=== PATIENT | male | born 1950 | race Caucasian/White ===

== ENCOUNTER 2019-08-19 01:56 | Emergency (ER) | payer MEDICARE, OTHER, SELFPAY ==
[2019-08-19 02:02] VITALS: BP 164/88; PULSE 88; RESP 20; TEMP 37.2; O2SAT 99
--- NOTE | 2019-08-19 02:07 | ED_ITS ---
HPI - Ear Problem General Chief complaint: Ear Stated complaint: FB RIGHT EAR Time Seen by Provider: 08/19/19 02:02 History of Present Illness HPI Narrative: Lost a piece of his hearing aid in his right ear earlier this evening. He now has moderate pain in the ear. He took tylenol with moderate relief. No dizziness or drainage. Related Data Allergies Allergy/AdvReac Type Severity Reaction Status Date / Time No Known Allergies Allergy Verified 08/19/19 02:08 Review of Systems Review of Systems: All systems reviewed & are unremarkable except as noted in HPI and below Constitutional: Constitutional: Denies fever(s) Eyes: Eyes: Denies change in vision ENT: Denies vertigo and Denies sore throat [facility] Social History Social History (Updated 08/19/19 @ 03:43 by Herbie Daley MD) Smoking status: Never smoker Exam Const: General: no acute distress and alert Nutritional Appearance: obese Orientation/consciousness: patient oriented x3 HENMT: Other: Hearing aid visible in right external canal abutting TM Resp: Effort & Inspection: normal respiratory effort Skin: General skin exam: normal color Neuro: General: patient oriented x3 and moves all extremities Speech: normal speech Course Vital Signs Vital signs: Vital Signs Temperature 37.2 C 08/19/19 02:02 Pulse Rate 88 08/19/19 02:02 Respiratory Rate 08/19/19 02:02 Blood Pressure 164/88 H 08/19/19 02:02 Pulse Oximetry 99 08/19/19 02:02 Temperature 37.2 C 08/19/19 02:02 Pulse Rate 88 08/19/19 02:02 Respiratory Rate 08/19/19 02:02 Blood Pressure 164/88 H 08/19/19 02:02 Pulse Oximetry 99 08/19/19 02:02 Procedures Foreign Body Removal Foreign Body #1: Site: right and ear Description of foreign body: other (hearing aid piece) Technique: removal with forceps and other (ear speculum) Confirmed by:: direct visualization Complications: none Medical Decision Making Vital Signs Vital Signs: Vital Signs Temperature 37.2 C 08/19/19 02:02 Pulse Rate 88 08/19/19 02:02 Respiratory Rate 08/19/19 02:02 Blood Pressure 164/88 H 08/19/19 02:02 Pulse Oximetry 99 08/19/19 02:02 Temperature 37.2 C 08/19/19 02:02 Pulse Rate 88 08/19/19 02:02 Respiratory Rate 20 08/19/19 02:02 Blood Pressure 164/88 H 08/19/19 02:02 Pulse Oximetry 99 08/19/19 02:02 Discharge Plan Discharge Clinical Impression: Ear foreign body Qualifiers: Encounter type: initial encounter Laterality: right Qualified Code(s): T16.1XXA - Foreign body in right ear, initial encounter Patient Disposition: Home, Self-Care Condition: Stable Instructions: Ear Foreign Body (ED) Follow-up/Referrals: Sinan,Mark Massey MD [Primary Care Provider] - Discharge Date/Time: 08/19/19 04:59
[2019-08-19] MEDS: HYDROGEN PEROXIDE 3% SOLN(*SP) 473 ML BOTTLE (02:30)
--- NOTE | 2019-08-19 03:02 | PC.NURSE ---
EDP in room at this time, attempting to remove FB from patient's right ear.
== END 2019-08-19 04:59 | disposition home or self-care (01) ==
PROVIDERS: Emergency Provider Emergency Medicine; PCP Internal Medicine
DX: T16.1XXA Foreign body in right ear, initial encounter (principal)
CPT/HCPCS: 69200; 99283; A9270

== ENCOUNTER 2021-02-18 02:25 | Day surgery (SDC) | payer MEDICARE, OTHER, SELFPAY ==
[2021-02-10 14:18] VITALS: BMI 36.8
--- NOTE | 2021-02-17 13:07 | PM.HPGS ---
History of Present Illness History of Present Illness Consent: Risks, benefits, and alternatives have been discussed and questions answered. Patient agrees to proceed with procedure. Chief complaint: neoplasm screening Narrative: Steve Ramirez Jr. is a 70 year old male was referred for colon cancer screening Review of Systems Review of Systems: All systems reviewed & are unremarkable except as noted in HPI and below PMFSH Past Medical History Medical History GERD (gastroesophageal reflux disease) Obesity Snoring Surgical History Surgical History History of carpal tunnel surgery Social History Social History Smoking status: Never smoker Alcohol use details: rare drinker while dining out, <1 per week Substance use: never Substance use type: does not use Living arrangements: with family Spiritual care concerns: No Meds Home Medications and Allergies Home Medications Medication Instructions Recorded Confirmed Type aspirin [Adult Low Dose Aspirin] 81 mg PO DAILY 02/10/21 02/18/21 History diclofenac sodium 75 mg PO DAILY 02/10/21 02/18/21 History lansoprazole 15 mg PO DAILY 02/10/21 02/18/21 History Allergies Allergy/AdvReac Type Severity Reaction Status Date / Time atorvastatin [From Lipitor] AdvReac Unknown Dizziness Verified 02/18/21 11:33 Exam Const: General: alert Orientation/consciousness: patient oriented x3 Resp: Auscultation: clear to auscultation bilaterally Cardio: Rhythm: regular rhythm GI: GI Palp: Yes Soft to palpation and No Tenderness to palpation present (GI) Neuro: General: patient oriented x3 Assessment and Plan Assessment and plan (1) Colon cancer screening: Code(s): Z12.11 - Encounter for screening for malignant neoplasm of colon Status: Acute Assessment and Plan: Colonoscopy with possible biopsy or polypectomy or cautery or injection of substances.
[2021-02-18 11:34] VITALS: BP 153/83; PULSE 87; RESP 18; TEMP 36.2; O2SAT 97
[2021-02-18] MEDS: LACTATED RINGERS 1,000 ML 150 ML IV CONT (11:38)
--- NOTE | 2021-02-18 12:21 | WPDANESEPPF ---
Anes - Initial Pre Proc Eval Procedure: Operation Date: 02/18/21 14:00 Proposed Procedures p Screening Colonoscopy - Mina Zee MD Date/Time: 02/18/21 12:21 Surgeon: Mina Zee MD Pre Op Diagnosis: neoplasm screening Patient Data Age: 70 Gender: M Height: 1.8 m Weight: 117.4 kg Last Vital Signs Temp 36.2 C L 02/18/21 11:34 Pulse 87 02/18/21 11:34 Resp 18 02/18/21 11:34 BP 153/83 H 02/18/21 11:34 Pulse Ox 97 02/18/21 11:34 Allergies Allergy/AdvReac Type Severity Reaction Status Date / Time atorvastatin [From Lipitor] AdvReac Unknown Dizziness Verified 02/18/21 11:33 Home Medications Medication Instructions Recorded Confirmed Type aspirin [Adult Low Dose Aspirin] 81 mg PO DAILY 02/10/21 02/18/21 History diclofenac sodium 75 mg PO DAILY 02/10/21 02/18/21 History lansoprazole 15 mg PO DAILY 02/10/21 02/18/21 History Patient hx anesthesia problems: none Family hx anesthesia problems: none Results Review: All pre-operative results and documents have been reviewed as part of the pre-operative evaluation. [facility] Past Medical History Medical History (Updated 02/18/21 @ 12:26 by Pascual Miranda MD) GERD (gastroesophageal reflux disease) Obesity Snoring Surgical History Surgical History (Updated 02/18/21 @ 12:25 by Pascual Miranda MD) History of carpal tunnel surgery Social History Social History Smoking status: Never smoker Alcohol use details: rare drinker while dining out, <1 per week Substance use: never Substance use type: does not use Living arrangements: with family Spiritual care concerns: No Anes - Eval Final PreProcedure Day of Procedure 02/18/21 12:21 Patient weight: obese Heart: regular rate and rhythm Lungs: clear to auscultation Airway: Mallampati scale class III and special considerations large tongue Neurological: alert and oriented Last oral intake: >/= 8 hours ASA classification: III Emergent: no Anesthetic plan: proceed Anesthesia type and monitoring: general GIVS and standard monitoring Results Review: All pre-operative results and documents have been reviewed as part of the pre-operative evaluation. Informed Consent: The patient's anesthetic plan and its attendant risks and benefits were discussed with the patient/family/POA. Questions were solicited and answers provided to the satisfaction of the patient/family/POA.
[2021-02-18 13:10] VITALS: BP 106/68; PULSE 70; RESP 16; O2SAT 96
[2021-02-18 13:20] VITALS: BP 109/73; PULSE 78; RESP 20; O2SAT 98
[2021-02-18 13:30] VITALS: BP 131/95; PULSE 80; RESP 20; O2SAT 99
== END 2021-02-18 13:42 | disposition home or self-care (01) ==
PROVIDERS: PCP Internal Medicine; Visit Provider Internal Medicine Gastroenterology
PROC: 0DJD8ZZ Inspection of Lower Intestinal Tract, Via Natural or Artificial Opening Endoscopic (ICD-10-PCS; CPT 45378; principal; 2021-02-18 14:00)
DX: Z12.11 Encounter for screening for malignant neoplasm of colon (principal); K57.30 Diverticulosis of large intestine without perforation or abscess without bleeding; K21.9 Gastro-esophageal reflux disease without esophagitis; E66.9 Obesity, unspecified; Z68.36 Body mass index [BMI] 36.0-36.9, adult
CPT/HCPCS: G0121; J2704; J7120

== ENCOUNTER 2022-02-15 09:34 | Outpatient (CLI) | payer MEDICARE, OTHER, SELFPAY ==
--- NOTE | 2022-02-15 11:00 | NEURO_ITS ---
Impression: # Complains of numbness of feet. 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 # Needle/EMG exam revealed decreased motor units potentials distal more than proximal without acute denervation potentials. # Clinical correlation recommended. Motor Nerve Conduction Lower Extremities Peroneal Nerve Conduction Velocity (m/sec) Terminal Latency (msec) Response Voltage(mV) Popliteal space-Ankle Ankle Extensor Dig Brevis Popliteal space Ankle Right 30 4.5 .2 1 Left 40 4.6 1 1 Tibial Nerve Conduction Velocity (m/sec) Terminal Latency (msec) Response Voltage(mV) Popliteal space-Ankle Ankle-Extensor Dig Brevis Popliteal space Ankle Right 39 5.0 1 3 Left 41 5.1 2 3 F-waves Peroneal Nerve (ms) Tibial Nerve (ms) Right Dispersed Response 61.7 Left 57.3 28.8 Sensory Nerve Conduction Lower Extremities Sural Nerve Stimulation Terminal Latency (msec) Ankle Response Voltage (uV) Ankle Response Velocity (m/sec) Right NR NR NR Left 3.9 14 41 Superficial Peroneal Nerve Stimulation Terminal Latency (msec) Ankle Response Voltage (uV) Ankle Response Velocity (m/sec) Right 4.2 22 38 Left 3.8 14 42 Left Right Muscles Examined Fibrillation Fasciculation Scarcity Voltage Duration Left Right Left Right Left Right Left Right Left Right X X Ant Tibialis Reduced Reduced X X Gastroc Reduced Reduced X X Fibularis Long Reduced Reduced X X Flex Dig Long Reduced Reduced X X Ext Dig Brev Reduced Reduced Abd Hallucis Quadriceps Paraspinals MTDD
== END 2022-02-15 09:35 | disposition home or self-care (01) ==
PROVIDERS: PCP Internal Medicine; Visit Provider Internal Medicine
DX: R20.2 Paresthesia of skin (principal)
CPT/HCPCS: 95886; 95910

== ENCOUNTER 2022-03-15 13:42 | Outpatient (CLI) | payer MEDICARE, OTHER, SELFPAY ==
--- NOTE | 2022-03-15 14:52 | ECG_ITS ---
Measurements Intervals Monument Rate: 74 P: 42 CT: 158 QRS: 5 QRSD: 91 T: 18 QT: 367 QTc: 409 Interpretive Statements SINUS RHYTHM BASELINE WANDER- V1 NORMAL ECG NO PREVIOUS ECG AVAILABLE FOR COMPARISON Electronically Signed On 03-15-2022 15:15:39 [employer] RN by Bennie Zuluaga D.O.
[2022-03-15 16:10] LABS: Basophils Absolute Auto 0.1 K/mm3 (0.0-0.1); Basophils Percent Auto 0.8 % (0.2-1.2); Eosinophils Absolute Auto 0.3 K/mm3 (0-0.3); Eosinophils Percent Auto 4.6 % (0-4.4); Hematocrit 46.7 % (42.0-52.0); Hemoglobin 14.9 g/dL (14.0-18.0); Immature Granulocyte Absolute 0.03 K/mm3 (0.00-0.031); Immature Granulocyte Percent A 0.5 % (0-0.5); Lymphocytes Absolute Auto 1.81 K/mm3 (0.9-3.2); Lymphocytes Percent Auto 27.7 % (18.3-44.2); Mean Corpuscular HGB Conc 31.9 g/dl (32-36); Mean Corpuscular Hemoglobin 27.4 pg (26-34); Mean Corpuscular Volume 85.8 fl (80-100); Mean Platelet Volume 9.1 fl (7.4-10.4); Monocytes Absolute Auto 0.5 K/mm3 (0.1-0.6); Monocytes Percent Auto 8.3 % (2.6-8.5); Neutrophils Absolute Auto 3.8 K/mm3 (1.3-6.7); Neutrophils Percent Auto 58.1 % (45.5-73.1); Platelet Count Result 241 k/mm3 (150-375); Red Blood Count 5.44 M/mm3 (4.6-6.20); Red Cell Distribution Width 13.8 % (11.5-14.5); White Blood Count 6.5 K/mm3 (4.5-10.0)
[2022-03-15 16:50] LABS: Urine Cotinine NEGATIVE
[2022-03-15 20:36] LABS: Hemoglobin A1C 5.9 % (<5.7)
== END 2022-03-15 13:43 | disposition home or self-care (01) ==
PROVIDERS: PCP Internal Medicine; Visit Provider Orthopaedic Surgery
DX: M17.12 Unilateral primary osteoarthritis, left knee (principal); Z01.818 Encounter for other preprocedural examination
CPT/HCPCS: 80307; 83036; 85025; 87081; 87147; 87181; 87186; 93005

== ENCOUNTER 2022-03-16 13:37 | Outpatient (CLI) | payer MEDICARE, OTHER, SELFPAY ==
[2022-03-16 16:08] LABS: Albumin Level 4.4 g/dL (3.5-5.1); Anion Gap 6 mmol/L (8-16); Blood Urea Nitrogen 14 mg/dL (9-20); Calcium 9.2 mg/dL (8.4-10.2); Carbon Dioxide 28 mmol/L (22-30); Chloride 99 mmol/L (98-107); Estimated Glomerular Filt Rate > 60; Glucose 100 mg/dL (65-110); Potassium 3.9 mmol/L (3.4-5.0); Sodium 133 mmol/L (137-145)
== END 2022-03-16 13:38 | disposition home or self-care (01) ==
PROVIDERS: PCP Internal Medicine; Visit Provider Orthopaedic Surgery
DX: M17.12 Unilateral primary osteoarthritis, left knee (principal); Z01.818 Encounter for other preprocedural examination
CPT/HCPCS: 36415; 80048; 82040

== ENCOUNTER 2022-03-31 00:38 | Day surgery (SDC) | payer MEDICARE, OTHER, SELFPAY ==
[2022-03-15 13:56] VITALS: BMI 39.1
[2022-03-15 14:06] VITALS: BP 161/84; PULSE 75; RESP 16; TEMP 36.9; O2SAT 96
--- NOTE | 2022-03-15 14:13 | PC.NURSE ---
Report to the Outpatient Waiting Room, entrance under the green pavilion located off [facility], at time __10:00AM on date __03/31/22 . Planned Procedure Time: __12:00PM . Time changes happen often and if your time is changed the preop area will call you the afternoon before. - You and your visitor will be asked to self-screen and do not enter if you have any COVID symptoms. - Only one visitor is requested with a max of two and NO children visitors are allowed at this time. - The patient visitor may be requested to leave or wait in car when not with patient due to distancing restrictions. - A mask is optional within the hospital. Patients may have clear liquids (water, carbonated beverages, clear teas, apple juice) until 3 hours prior to surgery with a maximum of 20 ounces. - No food from midnight until time of surgery Take the following medications with a SIP of water the morning of surgery: ___GABAPENTIN NEEDED Medications to discontinue per physician ____HOLD ALL VITAMINS/SUPPLEMENTS, ASPIRIN AND DICLOFENAC/NSAIDS 7 DAYS PRE-OP PER DR MACK (PER PATIENT) Date to take last dose__03/24/22 Please no make-up, nail estonian, hairspray, perfume, deodorant, or body powder the day of surgery. No jewelry (including any body piercings) or valuables the day of surgery, leave them at home. Please take a shower or bath the night before, or the morning of, surgery with an antibacterial soap. Wear comfortable, loose fitting clothing. Children are encouraged to wear pajamas. - Jewelry must be removed prior to entering the operating room. Rings and piercings that are not removed may be cut off. - The hospital will not accept responsibility for valuables. - Please leave all valuables, including medications, at home the day of surgery. If you are going home after surgery, a licensed nascar driver must drive you home. - NO public transportation without another adult if you receive anesthesia. - We recommend that an adult stay with you for 24 hours following discharge. - We also recommend that you do not drive, make important decision, drink alcoholic beverages, or take any drugs that were not prescribed by your health care provider for at least 24 hours after your discharge time. Follow any additional instructions given to you from your surgeon. If you or anyone in your household have experienced Covid symptoms in the past week, please notify your surgeon or the nurse liaison at the phone number below for possible testing. Telephone instructions given to __PATIENT__and asked if any additional questions and then verbalized understanding. Patient advised to call surgeon office or pre surgery nurse liaison [phone] if any additional questions.
--- NOTE | 2022-03-29 13:33 | PM.IMHP ---
H&P: HPI History of Present Illness Date/Time: 03/29/22 13:33 Chief Complaint: Left knee DJD Narrative: 71-year-old male patient of Dr. Menon who presents today for left total knee arthroplasty. patient has been having pain for about 3 or 4 years. He has been on diclofenac 75 mg b.i.d. for that amount of time. Patient had arthroscopy done to this knee approximately 25 years ago. The medial compartment osteoarthritis in his knee has progressed to the point now where it is [id number]. Patient is having pain on a regular basis without improvement of his symptoms with non surgical treatment. He feels at this point he is ready to proceed with total knee arthroplasty rather continue in a nonsurgical treatment. Review of Systems Review of Systems: All systems reviewed & are unremarkable except as noted in HPI and below PMFSH Past Medical History Medical History GERD (gastroesophageal reflux disease) Obesity Snoring Surgical History Surgical History History of carpal tunnel surgery Social History Social History Smoking status: Never smoker Alcohol intake: current Drinks per week: 1 Alcohol use details: rare drinker while dining out, <1 per week Substance use: never Substance use type: does not use Living arrangements: with family Additional living arrangements comments: Spiritual care concerns: No Meds Home Medications and Allergies Home Medications Medication Instructions Recorded Confirmed Type aspirin 81 mg tablet 81 mg PO DAILY 02/10/21 03/15/22 History diclofenac sodium 75 mg 75 mg PO QAM 02/10/21 03/15/22 History tablet,delayed release lansoprazole 15 mg capsule,delayed 15 mg PO DAILY PRN Indigestion 02/10/21 03/15/22 History release acetaminophen 650 mg 1,300 mg PO Q12H PRN Pain 03/15/22 03/15/22 History tablet,extended release (Tylenol Arthritis Pain) ascorbic acid (vitamin C) 1,000 mg 1 g PO DAILY 03/15/22 03/15/22 History capsule ezetimibe 10 mg tablet 10 mg PO DAILY 03/15/22 03/15/22 History gabapentin 100 mg capsule 100 mg PO TID 03/15/22 03/15/22 History geriatric multivitamin-min 1 tablet PO DAILY 03/15/22 03/15/22 History tumeric 100 mg-alice 150 mg-olive 1 - 2 cap PO DAILY PRN Pain 03/15/22 03/15/22 History 50 mg-oreg 150 mg-caprylate capsule vitamin B complex (B 1 tablet PO DAILY 03/15/22 03/15/22 History Complex-Vitamin B12 tablet) Allergies Allergy/AdvReac Type Severity Reaction Status Date / Time atorvastatin [From Lipitor] AdvReac Unknown Dizziness Verified 03/15/22 13:58 Exam Narrative: 71-year-old male alert pleasant. He is 5 ft 9 and 268 lb, his BMI is 39.6. Left knee range of motion is from 5-120 degrees, there is a mild effusion. Mild medial joint line tenderness. Normal stability. Hip range of motion is full without discomfort. Negative Stinchfield maneuver. Normal quad strength. Patient has moderate pain with patellofemoral grind. He reports marketed numbness and tingling in the tops and bottoms of both feet. 2+ dorsalis pedis and posterior artery pulse. Trace pretibial edema bilaterally. Resp: Auscultation: clear to auscultation bilaterally Cardio: Rate: regular rate Rhythm: regular rhythm Assessment and Plan Assessment and plan (1) Left knee DJD: Code(s): M17.12 - Unilateral primary osteoarthritis, left knee Status: Acute Plan 71-year-old male who has severe medial compartment osteoarthritis. Again options were discussed. Patient at this point feels he would rather proceed with total knee arthroplasty rather continue nonsurgical treatment. Surgical procedure as well as the risks and complications were discussed in detail all questions were answered and will proceed. Patient is going to stop his baby aspirin mid February. He has no
[2022-03-31] VITALS (10 sets, daily range): BP systolic 125–164; BP diastolic 67–89; PULSE 71–93; RESP 8–18; TEMP 36.3–37.1; O2SAT 93–100
--- NOTE | ~2022-03-31 | XR_ITS ---
EXAM: XR knee LT 2V DATE: 03/31/2022 16:31 HISTORY: LT TOTAL KNEE . COMPARISON: 06/11/2015. FINDINGS: Interval left total knee arthroplasty, in good position. Fluid and air within the subcutan eous tissues and the joint capsule. No unexpected radiopaque foreign body. IMPRESSION: Expected postsurgical changes, with no radiographic evidence of procedure or hardware rel ated complication. Reviewed, dictated and finalized at location K. BRIDGE TENDER IMPRESSION: Expected postsurgical changes, with no radiographic evidence of pro cedure or hardware related complication.
[2022-03-31] MEDS: LACTATED RINGERS 1,000 ML 30 ML IV CONT ×3 (10:20→16:55)
[2022-03-31] MEDS: ACETAMINOPHEN 500 MG TABLET 1000 MG PO ×2 (10:22→18:36)
--- NOTE | 2022-03-31 11:27 | WPDANESEPPF ---
Anes - Initial Pre Proc Eval Procedure: Operation Date: 03/31/22 12:00 Proposed Procedures p Left Total Knee Arthroplasty - Alirio Sharp MD Date/Time: 03/31/22 11:27 Surgeon: Alirio Sharp MD Pre Op Diagnosis: O A Lt Knee Patient Data Age: 71 Gender: M Height: 1.77 m Weight: 118.6 kg Last Vital Signs Temp 98.3 F 03/31/22 09:43 Pulse 84 03/31/22 09:43 Resp 16 03/31/22 09:43 BP 164/89 H 03/31/22 09:43 Pulse Ox 98 03/31/22 09:43 O2 Del Method Room Air 03/31/22 09:43 Allergies Allergy/AdvReac Type Severity Reaction Status Date / Time atorvastatin [From Lipitor] AdvReac Mild Dizziness Verified 03/31/22 09:58 Home Medications Medication Instructions Recorded Confirmed Type aspirin 81 mg tablet 81 mg PO DAILY 02/10/21 03/31/22 History diclofenac sodium 75 mg 75 mg PO QAM 02/10/21 03/31/22 History tablet,delayed release lansoprazole 15 mg capsule,delayed 15 mg PO DAILY PRN Indigestion 02/10/21 03/31/22 History release acetaminophen 650 mg 1,300 mg PO Q12H PRN Pain 03/15/22 03/31/22 History tablet,extended release (Tylenol Arthritis Pain) ascorbic acid (vitamin C) 1,000 mg 1 g PO DAILY 03/15/22 03/31/22 History capsule ezetimibe 10 mg tablet 10 mg PO DAILY 03/15/22 03/31/22 History gabapentin 100 mg capsule 100 mg PO TID 03/15/22 03/31/22 History geriatric multivitamin-min 1 tablet PO DAILY 03/15/22 03/31/22 History tumeric 100 mg-alice 150 mg-olive 1 - 2 cap PO DAILY PRN Pain 03/15/22 03/31/22 History 50 mg-oreg 150 mg-caprylate capsule vitamin B complex (B 1 tablet PO DAILY 03/15/22 03/31/22 History Complex-Vitamin B12 tablet) Patient hx anesthesia problems: none Family hx anesthesia problems: none Results Review: All pre-operative results and documents have been reviewed as part of the pre-operative evaluation. PMFSH Past Medical History Medical History GERD (gastroesophageal reflux disease) Obesity Snoring Surgical History Surgical History History of carpal tunnel surgery Social History Social History Smoking status: Never smoker Alcohol intake: current Drinks per week: 1 Alcohol use details: rare drinker while dining out, <1 per week Substance use: never Substance use type: does not use Living arrangements: with family Additional living arrangements comments: Spiritual care concerns: No Anes - Eval Final PreProcedure Day of Procedure 03/31/22 11:27 Patient weight: normal and obese Heart: regular rate and rhythm Lungs: clear to auscultation Airway: Mallampati scale class III Neurological: alert and oriented Last oral intake: >/= 8 hours ASA classification: III Emergent: no Anesthetic plan: proceed Anesthesia type and monitoring: general ETT and standard monitoring Results Review: All pre-operative results and documents have been reviewed as part of the pre-operative evaluation. Informed Consent: The patient's anesthetic plan and its attendant risks and benefits were discussed with the patient/family/POA. Questions were solicited and answers provided to the satisfaction of the patient/family/POA.
[2022-03-31] MEDS: TRANEXAMIC ACID 1,000MG/ISO100 1,000 MG/100 ML BAG 200 MG IVPB (11:31)
--- NOTE | 2022-03-31 12:09 | WPDHPUPDATE1 ---
History and Physical Update Update Date/Time: 03/31/22 12:09 History and Physical has been reviewed, including an updated exam of the patient. There are NO changes in the patient's condition. Risks, benefits, and alternatives have been discussed and questions answered. Patient agrees to proceed with procedure.
[2022-03-31] MEDS: ceFAZolin 3 GM/D5W 100 ML 100 ML IVPB (12:15)
[2022-03-31] MEDS: ceFAZolin SODIUM 1 GM VIAL 3 GM IRRIGATION (13:12)
[2022-03-31] MEDS: GENTAMICIN BONE CEMENT REFOBACIN 1 EACH TOPICAL (13:13)
[2022-03-31] MEDS: TRANEXAMIC ACID 1,000 MG/10 ML AMPUL 1000 MG IV PUSH (14:41)
[2022-03-31] MEDS: ceFAZolin SODIUM 1 GM VIAL 2 GM IV PUSH (14:43)
--- NOTE | 2022-03-31 16:17 | W.PM.PROC2 ---
Procedure Note - Detailed Date of Procedure 03/31/22 Pre-op Diagnosis O A Lt Knee Post-op Diagnosis Same Procedure Performed Left total knee arthroplasty Surgeon Alirio Sharp MD Anesthesia General Description of Procedure Patient was brought to the operating room and general anesthesia was administered. He received 3 g Ancef weight based vancomycin 1 g of tranexamic acid as preoperatively and the left knee was prepped draped usual fashion. Under anesthesia his knee was very stiff he had flexion only to about 105? and these to 10 degree flexion contracture. There was extra difficulty with the procedure due to his obesity with BMI of 39 adding approximately 30 minutes the procedure. The limb was exsanguinated tourniquet elevated to 300 mmHg. A 8 in longitudinal midline incision was used and a standard parapatellar arthrotomy lysed. Infrapatellar and suprapatellar fat pads were excised a quadriceps synovectomy carried out. He had extensive scarring in the synovium it in part limited his flexion and a synovectomy of the suprapatellar pouch was carried out. Large osteophytes around the femur were removed. The patella showed only mild arthritic change with intact cartilage except for moderate thinning of cartilage in medial facet and I thought it was most appropriate for non resurfacing. A limited lateral facetectomy was performed. A guide александр was inserted down the femoral canal after aspiration of canal contents using the 5 degree valgus cutting bushing 9 mm of bone removed the distal femur. This removed equal amounts medially and laterally because of wear medially. Next the tibial plateau was cut. We removed about 2 mm in the low point of the medial tibial plateau. This removed approximately 12.5 mm from lateral side. Far posteromedially this gave us a skim cut. Cut was made perpendicular to the axis of the tibia. PCL was recessed and meniscal remnants excised. The anteromedial tibial osteophyte was removed. The extension gap looked fairly sq at this point. Flexion he had 8 mm of medial joint space and 12 mm of lateral joint space at 90?. The femoral sizing guide was applied the distal femur set at 5? of external rotation which matched Whitesides line. Posterior referencing pinholes were placed. The size 67.5 cutting block was applied AP and chamfer cuts were made and the trial fit line to line medial to lateral and anterior to posterior. Trialing the 10 CR insert had good medial to lateral balance both in flexion and extension. Full extension was already present. We had done a conservative posterior capsule release to this point. The the tibia was sized to a 75 vanguard and at proper rotation this fit line to line anteromedial to posterolateral rotation referenced off the medial 1/3 tibial tubercle anterior cortex of the tibia and 2nd metatarsal ray. This was punched and we trialed the 10 insert. Ten opened up to mm medially this point at 90? 1 mm lateral and extension 1-2 mm medially and 3-4 mm lateral. We trialed the 11 and the seemed a little bit tight in both flexion and extension lacking just a couple degrees of extension with barely positive bounce but seems a bit snug at 90? to anterior drawer. Step drill was used to make perforations in tibial plateau and distal femur. The bony surfaces were thoroughly irrigated and dried. Using 2 batches of methylmethacrylate 1 with gentamicin powder, cement was immediately applied the 75 tibia and the 67.5 left CR femoral component vanguard. Cement was applied the tibia pressurized and the 75 tibia fully seated cement applied to the femur the femoral component fully seated the knee brought into full extension with 11 mm 5 and 1 insert for pressurization the tourniquet released at 102 minutes. After cement hardening excess cement was sought for removed and hemostasis was achieved. EBL for the procedure estimated 250 cc. Additional 2 g of Ancef and 1 g of tranexamic acid were given at time
[2022-03-31] MEDS: fentaNYL CITRATE INJ (*CRX) 100 MCG/2 ML VIAL 25 MCG IV PUSH ×6 (16:20→16:45)
--- NOTE | 2022-03-31 17:41 | ADMGEN ---
This patient, Steve Ramirez Jr., was admitted to Medical Room 243-01. Patient/family oriented to hospital policies and general routines including ID bracelet, bed and alarms, visiting hours, pain management, procedures, bathroom and other care routines, personal items, smoking policy, room service/diet, and visiting hours. Information on how to activate the Rapid Response Team has been discussed. Patient/Family are encouraged to report perceived risks to care and to ask questions if they do not understand what they are told or what they should do.
[2022-03-31] MEDS: GABAPENTIN 100 MG CAPSULE PO (18:35)
[2022-03-31] MEDS: KETOROLAC 15 MG/ML VIAL (*BKC) IV PUSH ×2 (18:35→23:10)
[2022-03-31] MEDS: SENNA/DOCUSATE SODIUM TABLET 2 TAB PO (18:36)
[2022-03-31] MEDS: ceFAZolin 2 GM/D5W 50 ML 2 GM/50 ML BAG IVPB (21:50)
[2022-03-31] MEDS: oxyCODONE HCL (*CRX) 5 MG TAB IR PO ×2 (21:53→23:16)
--- NOTE | 2022-03-31 22:49 | PM.IMCN ---
Assessment and Plan Assessment and plan (1) History of total knee arthroplasty: Code(s): Z96.659 - Presence of unspecified artificial knee joint Status: Acute Assessment and Plan: -postop care per Orthopedic. -pain management per Orthopedic -PT OT per Orthopedic. The patient is currently sitting up in the chair. -DVT prophylaxis per Orthopedic. The patient appears to be on Eliquis. (2) GERD (gastroesophageal reflux disease): Code(s): K21.9 - Gastro-esophageal reflux disease without esophagitis Status: Acute Assessment and Plan: -the patient has been continue on Protonix (3) Hyperlipidemia: Code(s): E78.5 - Hyperlipidemia, unspecified Status: Acute Assessment and Plan: -continue with Zetia (4) Neuropathy: Code(s): G62.9 - Polyneuropathy, unspecified Status: Acute Assessment and Plan: -continue gabapentin Plan Thank you Dr. Sharp for this consultation. Will continue to comanage alongside you. HPI Data of Consult Consult date: 03/31/22 Requesting Physician: Alirio Sharp MD Primary Care Provider: Mark Menon, Consult Narrative Reason for consult: Medical management Narrative: Steve Ramirez Jr. is a 71 year old male who has been having pain to his left knee for at least 3-4 years. The patient has been on diclofenac for at least several years. He has been taking it at least twice a day. The patient has been taking care of his who is dealing with metastatic breast cancer. The patient stated that he was just now able to get his left total knee arthroplasty as he feels that his is somewhat settled and he feels that he wants to get his left knee surgery before she gets worse. He feels that he will need to be able to take care of his and lift her later on down the road. The patient preferred to have the left total knee arthroplasty per Dr. Manuel today rather than to continue with the nonsurgical treatment. Please see operative note per Dr. Manuel from today. The hospitalist group was asked to consult for medical management. Consultation date is 03/31/2022. Review of Systems Review of Systems: See HPI All systems reviewed & are unremarkable except as noted in HPI and below Constitutional: Constitutional: Reports as per HPI and Reports no additional constitutional complaints Eyes: Eyes: Reports as per HPI and Reports no additional eye complaints ENT: Reports system reviewed and no additional complaints, except as documented and Reports Normal hearing present Cardiovascular: Cardiovascular: Reports no additional cardiovascular complaints Respiratory: Respiratory: Reports no additional respiratory complaints and Reports no additional respiratory complaints Gastrointestinal: Gastrointestinal: Reports as per HPI and Reports no additional gastrointestinal complaints Musculoskeletal: Musculoskeletal: Reports no additional musculoskeletal complaints Integumentary/Breasts: Skin/Breast: Reports system reviewed and no additional complaints, except as docu and Reports as per HPI Neurologic: Reports system reviewed and no additional complaints, except as documented, Reports as per HPI and Reports Normal hearing present Psychiatric: Psychiatric: Reports no additional psychiatric complaints and Reports as per HPI Endocrine: Endocrine: Reports no additional endocrine complaints Hematologic/Lymphatic: Hematologic/Lymphatic: Reports no additional hematologic/lymphatic complaints Allergic/Immunologic: Allergic/Immunologic: Reports no additional allergic/immunologic complaints PMFSH Past Medical History Medical History (Updated 03/31/22 @ 23:02 by Amy Zeng NP) Colon cancer screening GERD (gastroesophageal reflux disease) Hyperlipidemia Neuropathy Obesity Snoring Surgical History Surgical History (Updated 03/31/22 @ 22:54 by Amy Zeng NP) H/O arthroscopy of left knee History of carpal tunn
[2022-04-01] MEDS: ACETAMINOPHEN 500 MG TABLET 1000 MG PO ×3 (00:29→11:09)
[2022-04-01 01:56] VITALS: BP 121/66; PULSE 81; RESP 18; TEMP 36.9; O2SAT 96
[2022-04-01] MEDS: oxyCODONE HCL (*CRX) 5 MG TAB IR PO ×4 (02:13→14:13)
[2022-04-01 05:29] LABS: Basophils Percent Auto 0.2 % (0.2-1.2); Hematocrit 37.3 % (42.0-52.0); Hemoglobin 11.9 g/dL (14.0-18.0); Immature Granulocyte Absolute 0.07 K/mm3 (0.00-0.031); Immature Granulocyte Percent A 0.6 % (0-0.5); Lymphocytes Absolute Auto 0.95 K/mm3 (0.9-3.2); Lymphocytes Percent Auto 7.6 % (18.3-44.2); Mean Corpuscular HGB Conc 31.9 g/dl (32-36); Mean Corpuscular Hemoglobin 27.5 pg (26-34); Mean Corpuscular Volume 86.3 fl (80-100); Monocytes Percent Auto 7.9 % (2.6-8.5); Neutrophils Absolute Auto 10.4 K/mm3 (1.3-6.7); Neutrophils Percent Auto 83.7 % (45.5-73.1); Platelet Count Result 205 k/mm3 (150-375); Red Blood Count 4.32 M/mm3 (4.6-6.20); Red Cell Distribution Width 13.8 % (11.5-14.5); White Blood Count 12.4 K/mm3 (4.5-10.0)
[2022-04-01 05:35] VITALS: BP 132/68; PULSE 81; RESP 18; TEMP 36.6; O2SAT 97
[2022-04-01 05:48] LABS: Anion Gap 6 mmol/L (8-16); Blood Urea Nitrogen 17 mg/dL (9-20); Calcium 8.3 mg/dL (8.4-10.2); Carbon Dioxide 25 mmol/L (22-30); Chloride 102 mmol/L (98-107); Estimated CRCL calculation 86 ml/min; Estimated Glomerular Filt Rate > 60; Glucose 138 mg/dL (65-110); Potassium 4.2 mmol/L (3.4-5.0); Sodium 133 mmol/L (137-145)
[2022-04-01] MEDS: ceFAZolin 2 GM/D5W 50 ML 2 GM/50 ML BAG IVPB ×2 (05:51→14:07)
--- NOTE | 2022-04-01 07:07 | PM.PNORT ---
Subjective Subjective Date/Time Seen: 04/01/22 07:07 Postop day 1 patient is alert. He is afebrile vital signs stable. Dressing is tachy and dry. Neurovascularly he is intact. Pain is very well controlled. He has been up sitting in chair last night for short amount time. He has walked in the room several times admitted to the restroom this morning. Overall he is comfortable and doing well. We will plan to have patient work with physical therapy today and if he continues to do well plan on discharging him home early this afternoon Objective Data Vital Signs Vital Signs: Vital Signs - 24 hr 03/31/22 09:43 03/31/22 16:15 03/31/22 16:30 Temperature 36.8 C 37.1 C Pulse Rate 84 93 88 Respiratory Rate 16 8 L 11 L Blood Pressure 164/89 H 138/76 138/76 Pulse Oximetry 98 100 96 Oxygen Delivery Room Air Simple Face Mask Room Air Oxygen Flow Rate 6 03/31/22 16:45 03/31/22 17:00 03/31/22 17:15 Temperature Pulse Rate 85 80 80 Respiratory Rate 12 12 14 Blood Pressure 144/85 H 125/76 125/76 Pulse Oximetry 96 97 97 Oxygen Delivery Room Air Room Air Room Air Oxygen Flow Rate 03/31/22 16:56 03/31/22 17:56 03/31/22 18:34 Temperature 36.6 C 36.3 C L 36.3 C L Pulse Rate 81 83 89 Respiratory Rate 16 18 18 Blood Pressure 147/71 H 152/86 H 145/67 H Pulse Oximetry 93 96 95 Oxygen Delivery Oxygen Flow Rate 03/31/22 21:43 04/01/22 01:56 04/01/22 05:35 Temperature 36.7 C 36.9 C 36.6 C Pulse Rate 71 81 81 Respiratory Rate 18 18 18 Blood Pressure 154/83 H 121/66 132/68 Pulse Oximetry 97 96 97 Oxygen Delivery Oxygen Flow Rate Intake/Output Intake/Output: Intake & Output 03/29/22 03/30/22 03/31/22 04/01/22 23:59 23:59 23:59 23:59 Intake Total 950 620 Output Total 200 Balance 950 420 Meds/Results Medications: Active Medications Generic Name Dose Route Start Last Admin Trade Name Freq PRN Reason Stop Dose Admin Acetaminophen 1,000 mg 03/31/22 18:00 04/01/22 05:51 Acetaminophen 500 Mg Tablet PO 1,000 mg Q6H [facility] Administration Apixaban 2.5 mg 04/01/22 09:00 Apixaban 2.5 Mg Tablet PO Q12HR [facility] Celecoxib 200 mg 04/01/22 08:00 Celecoxib 200 Mg Capsule PO DAILY@0800 [facility] Cephalexin HCl 500 mg 04/01/22 18:00 Cephalexin 500 Mg Capsule PO Q6HR [facility] Ezetimibe 10 mg 04/01/22 09:00 Ezetimibe 10 Mg Tablet PO DAILY [facility] Gabapentin 100 mg 03/31/22 17:32 03/31/22 18:35 Gabapentin 100 Mg Capsule PO 100 mg TID [facility] Administration Vancomycin HCl 1,000 mg in 250 mls @ 250 mls/hr 03/31/22 22:00 04/01/22 01:07 Vancomycin 1,000 Mg/D5w 250 Ml IVPB 04/01/22 10:59 Infused Q12H [facility] Infusion Cefazolin Sodium 2 gm in 50 mls @ 100 mls/hr 03/31/22 22:00 04/01/22 05:51 Ancef 2 Gm/D5w 50 Ml IVPB 04/01/22 14:29 100 mls/hr Q8H [facility] Administration Morphine Sulfate 2 mg 03/31/22 16:07 Morphine Sulfate (*Crx) 2 Mg/Ml Inj IV PUSH Q1H PRN Pain Rated 7-10 Multivitamins/Minerals 1 tab 04/01/22 09:00 Multivitamins /C Lutein (Centrum Silver) Tablet *Bkc PO 05/01/22 08:59 DAILY [facility] Naloxone HCl 0.1 mg 03/31/22 16:11 Naloxone Hcl 0.4 Mg/Ml Vial IV PUSH Q2M PRN Opiate Reversal Oxycodone HCl 5 mg 03/31/22 18:00 04/01/22 05:52 Oxycodone Hcl (*Crx) 5 Mg Tab Ir PO 5 mg Q4H [facility] Administration Oxycodone HCl 5 mg 03/31/22 16:07 03/31/22 23:16 Oxycodone Hcl (*Crx) 5 Mg Tab Ir PO 5 mg Q4H PRN Administration Pain Rated 4-10 Pantoprazole Sodium 20 mg 03/31/22 18:00 Pantoprazole Sod Sesquihydrate 20 Mg Tab PO DAILY PRN Indigestion Polyethylene Glycol 17 gm 04/01/22 09:00 Polyethylene Glycol 3350 17 Gm Powd.Pack PO QAM KASEY Senna/Docusate Sodium 2 tab 03/31/22 17:00 03/31/22 18:36 Senna/Docusate Sodium Tablet PO 2 tab BID KASEY Administration Radiology Results: ITS Impressions Knee X-Ray 03/31/22 16:37 IMPRESSION: Expected
--- NOTE | 2022-04-01 07:11 | PM.DS ---
DS: Admitting Diagnosis Discharge Date 04/01 Admitting Diagnosis Left knee DJD DS: Discharge Diagnosis Discharge Diagnosis (1) S/P total knee arthroplasty: Code(s): Z96.659 - Presence of unspecified artificial knee joint Status: Acute DS: Summary Hospital Course Hospital Course: 71-year-old male who underwent left total knee arthroplasty on 03/31. Underwent the procedure without complications. Postoperatively he has been afebrile vital signs are stable. Neurovascularly he is intact. His dressing is dry and intact. He was up walking the day of surgery in the room. Pain is well controlled with scheduled Tylenol as well as oxycodone 5 mg and Celebrex 200 mg daily. He will be discharged home on 04/01. Patient was advised to keep the leg elevated at home to prevent swelling but do his exercises on an hourly basis at home. He has outpatient therapy starting next Tuesday. He is on Eliquis for DVT prophylaxis for 2 weeks. He will also go home on Keflex for 2 weeks as well as Senokot and MiraLax for constipation. Patient was advised any questions or concerns he is to call the office otherwise we will see him at his appointed dates Time Spent with Patient Time attestation: Total time spent providing and/or coordinating discharge services: DS: Data Data Completed and Pending Labs on day of discharge: Labs from last 24 hours 04/01/22 04/01/22 03/31/22 04:54 04:54 09:47 WBC 12.4 H RBC 4.32 L Hgb 11.9 L D Hct 37.3 L MCV 86.3 MCH 27.5 MCHC 31.9 L RDW 13.8 Plt Count 205 MPV 9.0 Immature Gran % (Auto) 0.6 H Neut % (Auto) 83.7 H Lymph % (Auto) 7.6 L [place] % (Auto) 7.9 Eos % (Auto) 0.0 Baso % (Auto) 0.2 Lymph # (Auto) 0.95 [place] # (Auto) 1.0 H Eos # (Auto) 0.0 Baso # (Auto) 0.0 Abs Immat Gran (auto) 0.07 H Absolute Neuts (auto) 10.4 H Absolute Nucleated RBC 0.0 Nucleated RBC % 0.0 Sodium 133 L Potassium 4.2 Chloride 102 Carbon Dioxide 25 Anion Gap 6 L BUN 17 Creatinine 0.90 Estim Creat Clear Calc 86 Estimated GFR > 60 Glucose 138 H Calcium 8.3 L Blood Type O Positive Antibody Screen Negative Discharge Plan Discharge Patient Disposition: Home, Self-Care Discharge Instructions: ALIRIO SHARP M.D [facility], [place] [id number] [place] [address] POST-OPERATIVE DISCHARGE INSTRUCTIONS TOTAL KNEE ARTHROPLASTY 1. When resting, lie on back with leg elevated above heart to minimize swelling. Significant swelling could indicate a blood clot and if this occurs call the office (or go to the ER) to have a venous ultrasound. 2. Do exercise 5 times a day. 3. Do not sit with leg down except for meals. 4. Wound Care: Nursing will give additional dressings at discharge. Patient to change dressing at home 1 week from surgery, then maintain until seen in office. 5. May shower with dressing in place. 6. Follow weight bearing status instructions. IMPORTANT: Remember not to sit in the chair for more than 30 minutes at a time. As a rule, during the first 14 days after surgery, only sit in the chair to work on the chair knee bending stretch exercise, for meals or for use of the restroom. Sitting in the chair promotes significant swelling in the knee and leg which will make the knee stiff and more painful and which simulates having a blood clot in the veins of the leg. If this type of significant diffuse swelling occurs, an ultrasound at the hospital will be necessary to rule out a blood clot. Be up walking around with the walker for a few minutes every hour while awake and then rest laying on your back on the couch or in bed with your leg elevated on cushions or pillows. Do not rest in the chair. Patient Instructions: Pain Management (DC), Knee Replacement (DC) Follow-up/Referrals: Alirio Sharp MD [Physician] - Keep Reg. Felecia
--- NOTE | 2022-04-01 08:45 | PM.IMPN ---
Progress Note: A&P Assessment and Plan (1) S/P total knee arthroplasty: Code(s): Z96.659 - Presence of unspecified artificial knee joint Status: Acute Assessment and Plan: POD 1 postop care per Orthopedic. pain management morphine, oxycodone jos and PRN, Celebrex Vanco and cefazolin will be completed Bowel regimen senna and miralax PT OT per Orthopedic DVT prophylaxis Eliquis PT/OT (2) GERD (gastroesophageal reflux disease): Code(s): K21.9 - Gastro-esophageal reflux disease without esophagitis Status: Acute Assessment and Plan: Continue Protonix (3) Hyperlipidemia: Code(s): E78.5 - Hyperlipidemia, unspecified Status: Acute Assessment and Plan: continue with Zetia (4) Neuropathy: Code(s): G62.9 - Polyneuropathy, unspecified Status: Acute Assessment and Plan: continue gabapentin Time Spent With Patient Time: ? MEDICAL DECISION MAKING NARRATIVE ? History obtained from: Patient ? History from independent sources: None ? External chart review: Opertive note ? New problems addressed: Insomnia ? Chronic illnesses addressed: HLD, GERD ? Independent interpretation of studies: none ? Comorbidities complicating care: none ? Diagnostic tests considered but not ordered:Lipid panel ? Risk of complication: Moderate, Recent surgery, risk for DVT/PE ? Time spent on encounter: 36 minutes Time with patient: Greater than 35 minutes Subjective Date/time seen: 04/01/22 08:45 Interval history: 04/01/22 0845 Patient is doing ok. Currently he is sitting in the chair. he currently has no complaints including chest pain, shortness a breath, nausea, vomiting, diarrhea, constipation, weakness or fatigue. He states that he is not having any pain. He also stated that his pain is controlled even with standing and walking. currently patient is stable on the medical side. Patient should be able to go home today as long as Ortho says it is okay. PT and OT states that the patient is doing well. 03/31/22 Steve Ramirez is a 71 year old male who has been having pain to his left knee for at least 3-4 years.? The patient has been on diclofenac for at least several years.? He has been taking it at least twice a day.? The patient has been taking care of his who is dealing with metastatic breast cancer.? The patient stated that he was just now able to get his left total knee arthroplasty as he feels that his is somewhat settled and he feels that he wants to get his left knee surgery before she gets worse.? He feels that he will need to be able to take care of his and lift her later on down the road.? The patient preferred to have the left total knee arthroplasty per Dr. Manuel today rather than to continue with the nonsurgical treatment.? Please see operative note per Dr. Manuel from today.? The hospitalist group was asked to consult for medical management.? Consultation date is 03/31/2022. Review of Systems Review of Systems: All systems reviewed & are unremarkable except as noted in HPI and below Exam Narrative: General: well-nourished, well-appearing 71-year-old male, sitting up in bed, comfortable, NARD Neuro: awake, alert and oriented x4, speech clear, no focal neuro deficits noted HEENMT: normocephalic, atraumatic, EOMI, sclerae anicteric, moist oral mucosa Respiratory: Clear to auscultation bilaterally without crackles, rhonchi or wheezes, nonlabored breathing Cardio: regular rate, regular rhythm with S1-S2 Abdomen: nondistended, normoactive bowel sounds, soft, nontender to palpation Extremities: no edema, erythema, or tenderness to palpation, DP pulses 2+ bilaterally, left knee with dressing dry and intact Skin: no rashes or lesions, warm and dry Psych: appropriate mood and affect, judgment and insight intact Objective Data Vital Signs Vital Signs: Vital Signs - 24 hr
[2022-04-01] MEDS: MULTIVITAMINS /C LUTEIN (CENTRUM SILVER) TABLET *BKC 1 TAB PO (08:52)
[2022-04-01] MEDS: GABAPENTIN 100 MG CAPSULE PO ×2 (08:52→13:06)
[2022-04-01] MEDS: EZETIMIBE 10 MG TABLET PO (08:52)
[2022-04-01 08:53] VITALS: RESP 18; O2SAT 97
[2022-04-01] MEDS: CELECOXIB 200 MG CAPSULE PO (08:53)
[2022-04-01] MEDS: SENNA/DOCUSATE SODIUM TABLET 2 TAB PO (08:53)
[2022-04-01] MEDS: APIXABAN 2.5 MG TABLET PO (08:53)
[2022-04-01] MEDS: polyethylene glycoL 3350 17 GM POWD.PACK PO (08:53)
[2022-04-01 10:38] VITALS: BP 124/61; PULSE 77; RESP 16; TEMP 36.7; O2SAT 100
--- NOTE | 2022-04-01 10:57 | WPDANESPN ---
Anes - Prog Note Post-Op Date/Time: 04/01/22 10:57 Cardiovascular status: normal Respiratory status: normal Airway patency: baseline Mental status: baseline Post-Op hydration status: normal Vital Signs: Last Vital Signs Temp 36.7 C 04/01/22 10:38 Pulse 77 04/01/22 10:38 Resp 16 04/01/22 10:38 BP 124/61 04/01/22 10:38 Pulse Ox 100 04/01/22 10:38 O2 Del Method Room Air 04/01/22 08:53 O2 Flow Rate 6 03/31/22 16:15 Pain Score (VAS): 04/16 I/O: Intake & Output 03/31/22 04/01/22 04/01/22 23:59 07:59 15:59 Intake Total 250 620 360 Output Total 200 Balance 250 420 360 Laboratory Tests 04/01/22 04:54 04/01/22 04:54 03/31/22 04/01/22 04/01/22 09:47 04:54 04:54 WBC 12.4 H RBC 4.32 L Hgb 11.9 L D Hct 37.3 L MCV 86.3 MCH 27.5 MCHC 31.9 L RDW 13.8 Plt Count 205 MPV 9.0 Immature Gran % (Auto) 0.6 H Neut % (Auto) 83.7 H Lymph % (Auto) 7.6 L [place] % (Auto) 7.9 Eos % (Auto) 0.0 Baso % (Auto) 0.2 Lymph # (Auto) 0.95 [place] # (Auto) 1.0 H Eos # (Auto) 0.0 Baso # (Auto) 0.0 Abs Immat Gran (auto) 0.07 H Absolute Neuts (auto) 10.4 H Absolute Nucleated RBC 0.0 Nucleated RBC % 0.0 Sodium 133 L Potassium 4.2 Chloride 102 Carbon Dioxide 25 Anion Gap 6 L BUN 17 Creatinine 0.90 Estim Creat Clear Calc 86 Estimated GFR > 60 Glucose 138 H Calcium 8.3 L Blood Type O Positive Antibody Screen Negative Post-procedural complaints: none Patient Feedback: Patient satisfied with anesthetic care.
== END 2022-04-01 15:05 | disposition home or self-care (01) ==
LOC: ANHSURGERY 09:35 → ANH2MED 17:34
PROVIDERS: PCP Internal Medicine; Visit Provider Orthopaedic Surgery
PROC: (CPT 27447; principal; 2022-03-31 12:00)
DX: M17.12 Unilateral primary osteoarthritis, left knee (principal); K21.9 Gastro-esophageal reflux disease without esophagitis; E78.5 Hyperlipidemia, unspecified; G62.9 Polyneuropathy, unspecified; E66.9 Obesity, unspecified; Z68.38 Body mass index [BMI] 38.0-38.9, adult; Z79.82 Long term (current) use of aspirin
CPT/HCPCS: 27447; 36415; 73560; 80048; 85025; 86850; 86900; 86901; 97110; 97161; 97165; 97530; A9270; C1713; C1776; J0171; J0690; J1100; J1170; J1885; J2250; J2270; J2405; J2704; J2795; J3010; J3370; J7120

== ENCOUNTER 2022-05-12 11:08 | Outpatient (CLI) | payer MEDICARE, OTHER, SELFPAY ==
--- NOTE | ~2022-05-12 | US_ITS ---
EXAMINATION: US venous doppler [facility] DATE: 05/12/2022 11:48 INDICATION: Left lower limb swelling. TECHNIQUE: Grayscale ultrasound images without and with compression and Doppler ultrasound images of the left lower extremity veins were obtained. COMPARISON: None. FINDINGS: The visualized portions of left common femoral vein, profunda (deep) femoral vein, femoral vein, popl iteal vein, peroneal veins, posterior tibial veins, and greater saphenous vein outflow are patent. IMPRESSION: 1. No deep venous thrombosis. Reviewed, dictated and finalized at location A. EMENT CLERKS MANAGER
== END 2022-05-12 11:09 | disposition home or self-care (01) ==
PROVIDERS: PCP Internal Medicine; Visit Provider Orthopaedic Surgery
DX: R60.0 Localized edema (principal)
CPT/HCPCS: 93971

== ENCOUNTER 2023-03-11 09:56 | Emergency (ER) | payer MEDICARE, OTHER, SELFPAY ==
--- NOTE | ~2023-03-11 | CT_ITS ---
EXAMINATION: CT abdomen pelvis w con DATE: 03/11/2023 12:34 INDICATION: Left lower quadrant abdominal pain TECHNIQUE: Computed tomography (CT) of the abdomen and pelvis was performed with 100 CC Omnipaque 350 intravenous contrast. Automated exposure control and iterative reconstruction technique were employe d. Exam dose: 1346.98 mGy-cm total exam DLP. COMPARISON: None. FINDINGS: The lung bases are clear of infiltrate or consolidation. Normal heart size. Small sliding hiatal hernia. The liver, gallbladder, bile ducts, pancreas, pancreatic duct and spleen are unremarkable. There is minimal nodularity of the adrenal glands, greater on the left. Small adenomas are not exclud ed. Approximately 5 cm exophytic right renal cyst. Probable approximately 12 mm left renal cyst. 10 mm ex ophytic and 2.5 cm exophytic left renal cysts. 5 mm nonobstructing lower pole left renal calculus. No other urinary tract calculus or hydroureterone phrosis is noted. The urinary bladder is unremarkable. There is prostate enlargement and calcificatio n. Normal caliber of the abdominal aorta. No intraperitoneal or retroperitoneal or pelvic mass lesion or adenopathy or ascites. Normal appendix. There are diverticula of the sigmoid and descending colon. There is prominent pericolic soft tissue increased fat density and stranding and some thickening of t he wall of the sigmoid colon, in addition to some nearby thickening of the anterior pararenal and lat eral conal fascia, consistent with acute distal descending colon diverticulitis. No abscess or free i ntraperitoneal air is noted. No bowel obstruction. There are degenerative changes of the thoracic and lumbar spine. IMPRESSION: Acute diverticulitis of distal descending colon Sigmoid and descending colonic diverticulosis Small sliding hiatal hernia Bilateral renal cysts 5 mm nonobstructing lower pole left renal calculus Normal appendix Reviewed, dictated and finalized at Location A. Reviewed, dictated and finalized at location B. GROUND MANAGER
[2023-03-11 10:00] VITALS: BP 162/98; PULSE 101; RESP 16; TEMP 37.3; O2SAT 97
[2023-03-11 11:54] LABS: Appearance Urine Clear (Clear); Bilirubin Urine Negative (Negative); Blood Urine Negative (Negative); Color Urine Yellow (Yellow); Glucose Urine UA Negative (Negative); Ketones Urine Negative (Negative); Leukocyte Esterase Ur Negative LEU/UL (Negative); Nitrate Urine Negative (Negative); Protein Urine Negative (Negative); Specific Grav Ur 1.024 (1.001-1.035); Urobilinogen Urine 0.2 mg/dL (<2.0); pH Urine 5.5 (5.0-9.0)
[2023-03-11 11:55] LABS: Basophils Percent Auto 0.3 % (0.2-1.2); Eosinophils Percent Auto 0.3 % (0-4.4); Hematocrit 45.8 % (42.0-52.0); Hemoglobin 14.2 g/dL (14.0-18.0); Immature Granulocyte Absolute 0.06 K/mm3 (0.00-0.031); Immature Granulocyte Percent A 0.4 % (0-0.5); Lymphocytes Absolute Auto 1.24 K/mm3 (0.9-3.2); Lymphocytes Percent Auto 9.1 % (18.3-44.2); Mean Corpuscular Hemoglobin 26.9 pg (26-34); Mean Corpuscular Volume 86.7 fl (80-100); Mean Platelet Volume 9.1 fl (7.4-10.4); Monocytes Absolute Auto 1.1 K/mm3 (0.1-0.6); Monocytes Percent Auto 7.8 % (2.6-8.5); Neutrophils Absolute Auto 11.2 K/mm3 (1.3-6.7); Neutrophils Percent Auto 82.1 % (45.5-73.1); Platelet Count Result 251 k/mm3 (150-375); Red Blood Count 5.28 M/mm3 (4.6-6.20); Red Cell Distribution Width 13.5 % (11.5-14.5); White Blood Count 13.6 K/mm3 (4.5-10.0)
[2023-03-11 12:06] LABS: Add Urine Microscopic? NO
[2023-03-11 12:07] LABS: Alanine Aminotransferase 19 U/L (6-50); Albumin Level 4.4 g/dL (3.5-5.1); Alkaline Phosphatase 89 U/L (38-126); Anion Gap 10 mmol/L (8-16); Aspartate Amino Transferase 25 U/L (17-59); Blood Urea Nitrogen 15 mg/dL (9-20); Calcium 9.7 mg/dL (8.4-10.2); Carbon Dioxide 27 mmol/L (22-30); Chloride 98 mmol/L (98-107); Estimated CRCL calculation 95 ml/min; Estimated Glomerular Filt Rate > 60; Glucose 115 mg/dL (65-110); Lipase 53 U/L (23-300); Potassium 4.4 mmol/L (3.4-5.0); Sodium 135 mmol/L (137-145)
[2023-03-11 12:15] VITALS: BP 149/78; PULSE 86; RESP 13; O2SAT 99
--- NOTE | 2023-03-11 12:26 | PC.NURSE ---
Pt taken to CT at this time
--- NOTE | 2023-03-11 13:14 | ED.ABDPAIN ---
HPI - Abdominal Pain General Chief Complaint: Abdominal Pain Stated Complaint: abd pain Time Seen by Provider: 03/11/23 11:10 History of Present Illness HPI narrative: patient is a 72-year-old male who presents to the ER with left-sided abdominal pain. Located in the lower quadrant. Began yesterday morning is progressively worsen. Pain is worsened by movement. No urinary frequency urgency or dysuria. No diarrhea or constipation. He has history of diverticulosis but no previous history of diverticulitis. Denies fevers though temperature is elevated here. Related Data Home Medications Medication Instructions Recorded Confirmed lansoprazole 15 mg capsule,delayed 15 mg PO DAILY PRN Indigestion 02/10/21 03/31/22 release ascorbic acid (vitamin C) 1,000 mg 1 g PO DAILY 03/15/22 03/31/22 capsule ezetimibe 10 mg tablet 10 mg PO DAILY 03/15/22 03/31/22 gabapentin 100 mg capsule 100 mg PO TID 03/15/22 03/31/22 geriatric multivitamin-min 1 tablet PO DAILY 03/15/22 03/31/22 vitamin B complex (B 1 tablet PO DAILY 03/15/22 03/31/22 Complex-Vitamin B12 tablet) Allergies Allergy/AdvReac Type Severity Reaction Status Date / Time atorvastatin [From Lipitor] AdvReac Mild Dizziness Verified 03/31/22 17:58 Review of Systems Review of Systems: All systems reviewed & are unremarkable except as noted in HPI and below Constitutional: Constitutional: Reports no additional constitutional complaints ENT: Reports system reviewed and no additional complaints, except as documented Cardiovascular: Cardiovascular: Reports no additional cardiovascular complaints Respiratory: Respiratory: Reports no additional respiratory complaints Gastrointestinal: Gastrointestinal: Reports abdominal pain, Denies constipation, Denies diarrhea, Denies nausea and Denies vomiting Genitourinary: Genitourinary: Reports no additional male genitourinary complaints [facility] Past Medical History Medical History (Updated 03/11/23 @ 13:16 by Mark Carr MD) Colon cancer screening GERD (gastroesophageal reflux disease) Hyperlipidemia Neuropathy Obesity Snoring Surgical History Surgical History (Updated 04/01/22 @ 06:47 by LILLIAN AshrafN-C) H/O arthroscopy of left knee History of carpal tunnel surgery Bilateral History of tonsillectomy History of total knee arthroplasty Family History Family History (Updated 03/31/22 @ 22:55 by Amy Zeng NP) Father Cerebrovascular accident Mother Emphysema of lung Social History Social History (Updated 03/31/22 @ 22:56 by Amy Zeng NP) Social History: The patient lives with his who has metastatic breast cancer. He has 1 daughter. 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 Lifelong nonsmoker. Code status full code Smoking status: Never smoker Alcohol intake: current Drinks per week: 2 Alcohol use details: rare drinker while dining out, <1 per week Substance use: current Substance use type: does not use Lack of Transportation: No Lack of Food: Never True Current Housing: I Have Housing Concerned About Future Housing: No Difficulty Paying Gas/Electric Bills: No Difficulty Paying for Meds: No Currently Unemployed: No Education: Associate Degree Difficulty w/ Childcare or Family Care: No Living arrangements: with family Additional living arrangements comments: Spiritual care concerns: No Exam Narrative: GENERAL: Well-appearing, well-nourished, and in no acute distress. HEAD: Normocephalic, atraumatic. ENT: Mucous membranes moist. CHEST: Clear to auscultation. No respiratory distress. HEART: Regular rate and rhythm. Normal peripheral pulses. ABDOMEN: Soft, tender palpation left lower quadrant with guarding, nondistended, normal active bowel sounds. EXTREMITIES: Normal range of motion. No edema. SKIN: Warm, dry, no rash. NEURO: Alert and oriented x3. PSYCH: Normal mood and affect. Course C
[2023-03-11 13:31] VITALS: BP 153/70; PULSE 77; RESP 20; O2SAT 98
== END 2023-03-11 13:31 | disposition home or self-care (01) ==
PROVIDERS: Emergency Provider Emergency Medicine; PCP Internal Medicine
DX: K57.32 Diverticulitis of large intestine without perforation or abscess without bleeding (principal); E78.5 Hyperlipidemia, unspecified; G62.9 Polyneuropathy, unspecified; E66.9 Obesity, unspecified; Z68.35 Body mass index [BMI] 35.0-35.9, adult; K21.9 Gastro-esophageal reflux disease without esophagitis; Z96.659 Presence of unspecified artificial knee joint; Z79.01 Long term (current) use of anticoagulants; K57.30 Diverticulosis of large intestine without perforation or abscess without bleeding; K44.9 Diaphragmatic hernia without obstruction or gangrene; N28.1 Cyst of kidney, acquired; N20.0 Calculus of kidney
CPT/HCPCS: 36415; 74177; 80053; 81003; 83690; 85025; 99284; Q9967

== ENCOUNTER 2023-12-10 11:52 | Inpatient (IN) | payer MEDICARE, OTHER, SELFPAY ==
[2023-12-10] VITALS (27 sets, daily range): BP systolic 132–186; BP diastolic 71–100; PULSE 67–105; RESP 13–20; TEMP 35.9–36.8; O2SAT 97–100; BMI 38.1
--- NOTE | ~2023-12-10 | CT_ITS ---
EXAMINATION: CTA chest abdomen pelvis DATE: 12/10/2023 14:16 INDICATION: chest pain radiating to back, +trop . TECHNIQUE: Computed tomography angiography of the chest, abdomen, and pelvis was performed with 100 m L Omnipaque-350 intravenous contrast in the arterial phase. Automated exposure control and iterative reconstruction technique were employed. The dose-length product was 1769.05 mGy-cm. COMPARISON: X-ray chest, same date; CT abdomen pelvis 03/11/2023 FINDINGS: CHEST: Thoracic aorta: No significant dilation. No dissection. Lung parenchyma and airways: Lungs and airways are clear. Thoracic inlet, axillae and chest wall: No thyroid or soft tissue mass. No axillary lymphadenopathy. Mediastinum: No mass or lymphadenopathy. Heart and pericardium: Normal heart size. No pericardial effusion. Coronary artery calcifications: Mild. Pleura: No effusion or mass. Thoracic bones: No acute osseous finding in the chest. ABDOMEN/PELVIS: Liver: 1.2 cm hyperenhancing nodule in the right liver lobe adjacent to the gallbladder, not well see n in the prior examination Biliary/Gallbladder: Gallbladder is normal. No bile duct dilation. Pancreas: No mass or duct dilation. Spleen: Normal. Adrenals:Minimal bilateral adrenal nodularity, may represent small adenomas. Kidneys: No suspicious mass, obstructing stone, or hydronephrosis. 5 mm nonobstructing left lower chichi e calcification. Bilateral simple renal cysts. GI tract: No small or large bowel dilation. Normal appendix. Diverticulosis without diverticulitis. Mesentery/Peritoneum: No ascites, mass, or free air. Retroperitoneum: No mass Atherosclerotic abdominal aortic and/or arterial calcifications. Patent aort ic branch vessels. Pelvis: Pelvic organs are within normal limits Soft Tissues: Soft tissues and body wall unremarkable. Abdominopelvic bones: No acute osseous finding in the abdomen/pelvis. IMPRESSION: No aortic dissection or aneurysm. No acute process detected in the chest abdomen or pelvis. 2.0 cm hyperenhancing right liver lobe lesion, recommend nonemergent but timely MR of liver for furth er evaluation. Reviewed, dictated and finalized at location K. IMPRESSION: No aortic dissection or aneurysm. No acute process detected in the chest abdomen or pelvis. 2.0 cm hyperenhancing right liver lobe lesion, recommend nonemergent but timely MR of liver for further evaluation.
--- NOTE | ~2023-12-10 | XR_ITS ---
EXAMINATION: XR chest 2V DATE: 12/10/2023 12:29 INDICATION: Chest pain radiating to the left arm TECHNIQUE: PA and lateral views of the chest were obtained. COMPARISON: None FINDINGS: The lungs are clear with no focal airspace opacities, pulmonary edema, pleural effusion or pneumothor ax. The cardiomediastinal silhouette is normal. Mild to moderate lower thoracic predominant spondylos is with chronic mild anterior wedging of a few lower thoracic vertebral bodies. IMPRESSION: 1. No acute cardiopulmonary disease. Reviewed, dictated and finalized at location A.
--- NOTE | 2023-12-10 11:53 | ECG_ITS ---
Test Date: 2023-12-10 12:06:10 Measurements Intervals [place] Rate: 73 P: 43 MS: 155 QRS: 49 QRSD: 94 T: 35 QT: 357 QTc: 396 Interpretive Statements SINUS RHYTHM NONSPECIFIC ST ELEVATION [0.05+ mV ST ELEVATION] No previous ECG available for comparison Electronically Signed On 12-10-2023 16:24:18 CDT by Kay Lopez M.D.
[2023-12-10 12:30] LABS: Basophils Absolute Auto 0.1 K/mm3 (0.0-0.1); Basophils Percent Auto 0.9 % (0.2-1.2); Eosinophils Absolute Auto 0.2 K/mm3 (0-0.3); Hematocrit 46.4 % (42.0-52.0); Immature Granulocyte Absolute 0.02 K/mm3 (0.00-0.031); Immature Granulocyte Percent A 0.4 % (0-0.5); Lymphocytes Absolute Auto 1.55 K/mm3 (0.9-3.2); Lymphocytes Percent Auto 29.2 % (18.3-44.2); Mean Corpuscular HGB Conc 32.3 g/dl (32-36); Mean Corpuscular Volume 86.7 fl (80-100); Mean Platelet Volume 8.7 fl (7.4-10.4); Monocytes Absolute Auto 0.5 K/mm3 (0.1-0.6); Monocytes Percent Auto 8.7 % (2.6-8.5); Neutrophils Absolute Auto 3.1 K/mm3 (1.3-6.7); Neutrophils Percent Auto 57.8 % (45.5-73.1); Platelet Count Result 214 k/mm3 (150-375); Red Blood Count 5.35 M/mm3 (4.6-6.20); Red Cell Distribution Width 13.2 % (11.5-14.5); White Blood Count 5.3 K/mm3 (4.5-10.0)
[2023-12-10 12:40] LABS: Alanine Aminotransferase 23 U/L (6-50); Albumin Level 4.6 g/dL (3.5-5.1); Alkaline Phosphatase 63 U/L (38-126); Anion Gap 10 mmol/L (4-12); Aspartate Amino Transferase 31 U/L (17-59); Bilirubin,Total 0.6 mg/dL (0.2-1.3); Blood Urea Nitrogen 15 mg/dL (9-20); Calcium 9.5 mg/dL (8.4-10.2); Carbon Dioxide 28 mmol/L (22-30); Chloride 97 mmol/L (98-107); Estimated CRCL calculation 74 ml/min; Estimated Glomerular Filt Rate > 60; Glucose 129 mg/dL (65-110); Lipase 80 U/L (23-300); Potassium 4.2 mmol/L (3.4-5.0); Sodium 135 mmol/L (137-145)
[2023-12-10 12:41] LABS: Partial Thromboplastin Time 32.1 Seconds (22.3-36.8); Prothrombin Time 13.7 Seconds (11.1-14.7)
[2023-12-10 12:53] LABS: Troponin I 0.105 ng/mL (0.000-0.034)
--- NOTE | 2023-12-10 13:33 | ECG_ITS ---
Test Date: 2023-12-10 13:37:13 Measurements Intervals [place] Rate: 74 P: 146 MT: 130 QRS: 132 QRSD: 95 T: 145 QT: 336 QTc: 373 Interpretive Statements SINUS RHYTHM POSSIBLE LEFT ATRIAL ENLARGEMENT [-0.1mV P-WAVE IN V1/V2] POSSIBLE RIGHT VENTRICULAR HYPERTROPHY [SOME/ALL OF: PROMINENT R IN V1, LATE TRANSITION, RAD, JUDI, SSS] MARKED ST ELEVATION, CONSIDER INFERIOR INJURY [MARKED ST ELEVATION W/O NORMALLY INFLECTED T-WAVE IN II/aVF] ACUTE MA Compared to ECG 12/10/2023 12:06:10 Myocardial infarct finding now present ST (T wave) deviation still present Electronically Signed On 12-10-2023 16:25:13 CDT by Kay Lopez M.D.
--- NOTE | 2023-12-10 13:41 | ED.CHESTPAIN ---
HPI - Chest Pain General Chief Complaint: Chest Pain Stated Complaint: chest pain Time Seen by Provider: 12/10/23 13:02 History of Present Illness HPI narrative: Patient reports chest pain that radiates to his back and both arms that started last night, no shortness of breath, nausea vomiting. Has had chest pain in the past but never like this and never for so long. His thinks it may be stress induced. No history of cardiac disease and patient denies any medical issues other than possibly elevated cholesterol. Related Data Home Medications Medication Instructions Recorded Confirmed lansoprazole 15 mg capsule,delayed 15 mg PO DAILY PRN Indigestion 02/10/21 03/31/22 release ascorbic acid (vitamin C) 1,000 mg 1 g PO DAILY 03/15/22 03/31/22 capsule ezetimibe 10 mg tablet 10 mg PO DAILY 03/15/22 03/31/22 gabapentin 100 mg capsule 100 mg PO TID 03/15/22 03/31/22 geriatric multivitamin-min 1 tablet PO DAILY 03/15/22 03/31/22 vitamin B complex (B 1 tablet PO DAILY 03/15/22 03/31/22 Complex-Vitamin B12 tablet) Allergies Allergy/AdvReac Type Severity Reaction Status Date / Time atorvastatin [From Lipitor] AdvReac Mild Dizziness Verified 03/31/22 17:58 Review of Systems Review of Systems: All systems reviewed & are unremarkable except as noted in HPI and below PMFSH Past Medical History Medical History (Updated 12/10/23 @ 13:55 by Melanie Mckeon MD) Colon cancer screening GERD (gastroesophageal reflux disease) Hyperlipidemia Neuropathy Obesity Snoring Surgical History Surgical History (Updated 04/01/22 @ 06:47 by JACQUELINE Ashraf) H/O arthroscopy of left knee History of carpal tunnel surgery Bilateral History of tonsillectomy History of total knee arthroplasty Family History Family History (Updated 03/31/22 @ 22:55 by Amy Zeng NP) Father Cerebrovascular accident Mother Emphysema of lung Social History Social History (Updated 03/31/22 @ 22:56 by Amy Zeng NP) Social History: The patient lives with his who has metastatic breast cancer. He has 1 daughter. 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 Lifelong nonsmoker. Code status full code Smoking status: Never smoker Alcohol intake: current Drinks per week: 2 Alcohol use details: rare drinker while dining out, <1 per week Substance use: current Substance use type: does not use Lack of Transportation: No Lack of Food: Never True Current Housing: I Have Housing Concerned About Future Housing: No Difficulty Paying Gas/Electric Bills: No Difficulty Paying for Meds: No Currently Unemployed: No Education: Associate Degree Difficulty w/ Childcare or Family Care: No Living arrangements: with family Additional living arrangements comments: Spiritual care concerns: No Exam Narrative: EXAMINATION OF ORGAN SYSTEMS/BODY AREAS: Constitutional: Vital signs per nursing GENERAL: Appears slightly uncomfortable in bed HEAD: Normal with no signs of head trauma. EYES: EOMI, conjunctiva normal ENT: Hearing grossly intact LUNGS: Nonlabored breathing. HEART: [Regular rate and rhythm], normal pulses bilateral radial and DP ABD: [Soft], [nontender to palpation] EXT: Normal range of motion SKIN: [No rashes or lesions.] NEURO: [Alert and oriented x 3. No gross focal sensory or strength deficits.] PSYCH: Normal affect Course Vital Signs Vital signs: Vital Signs Temperature 96.7 F L 12/10/23 11:58 Pulse Rate 74 12/10/23 11:58 Respiratory Rate 20 12/10/23 11:58 Blood Pressure 179/95 H 12/10/23 11:58 Pulse Oximetry 98 12/10/23 11:58 Oxygen Delivery Room Air 12/10/23 11:58 Temperature 98.3 F 12/10/23 13:34 Pulse Rate 105 H 12/10/23 13:45 Respiratory Rate 15 12/10/23 13:45 Blood Pressure 173/87 H 12/10/23 13:34 Pulse Oximetry 100 12/10/23 13:45 Oxygen Delivery Room Air 12/10/23 13:42 MDM - Chest Pain M
[2023-12-10] MEDS: HEPARIN SODIUM 5,000 UNITS/ML VIAL 4000 UNITS IV PUSH (13:52)
--- NOTE | 2023-12-10 14:25 | PM.IMHP ---
H&P: HPI History of Present Illness Date/Time: Date of zpgolyj58/05/24 14:25 Chief Complaint: chest pain Narrative: 73-year-old patient with difficulty of hearing with history of hyperlipidemia who presents to the hospital with chest pain. Initial EKG showed subtle ST elevations in inferior leads and repeat EKG after that shows davey ST elevations involving the inferior leads. His chest pain is central in location radiating to the back 12/14 when he presented and currently 07/14. Review of Systems Review of Systems: All systems reviewed & are unremarkable except as noted in HPI and below Constitutional: Constitutional: Denies chills, Denies fatigue, Denies fever(s), Denies headache(s) and Denies snoring Eyes: Eyes: Denies eye discharge and Denies loss of vision ENT: Denies dizziness, Denies headache(s), Denies nasal discharge and Denies sore throat Cardiovascular: Cardiovascular: Reports as per HPI, Reports chest pain, Denies syncope, Denies rapid heart rate, Denies leg edema, Denies dyspnea, Denies dyspnea on exertion, Denies orthopnea and Denies paroxysmal nocturnal dyspnea Respiratory: Respiratory: Denies chest congestion, Denies cough, Denies dyspnea, Denies dyspnea on exertion, Denies snoring and Denies wheezing Gastrointestinal: Gastrointestinal: Denies abdominal pain, Denies diarrhea, Denies nausea and Denies vomiting Genitourinary: Genitourinary: Denies hematuria, Denies dysuria, Denies flank pain and Denies urinary frequency Musculoskeletal: Musculoskeletal: Denies myalgias, Denies arthralgias and Denies joint swelling Neurologic: Denies Abnormal speech present, Denies dizziness, Denies syncope, Denies headache(s), Denies focal weakness and Denies loss of vision Psychiatric: Psychiatric: Denies anxiety and Denies depression Endocrine: Endocrine: Denies cold intolerance, Denies fatigue and Denies heat intolerance Hematologic/Lymphatic: Hematologic/Lymphatic: Denies easy bleeding and Denies easy bruising Allergic/Immunologic: Allergic/Immunologic: Denies urticaria and Denies wheezing PMFSH Past Medical History Medical History (Updated 12/10/23 @ 13:55 by Melanie Mckeon MD) Colon cancer screening GERD (gastroesophageal reflux disease) Hyperlipidemia Neuropathy Obesity Snoring Surgical History Surgical History (Updated 04/01/22 @ 06:47 by Ra G Myers, [employer]-C) H/O arthroscopy of left knee History of carpal tunnel surgery Bilateral History of tonsillectomy History of total knee arthroplasty Family History Family History Father Cerebrovascular accident Mother Emphysema of lung Social History Social History Social History: The patient lives with his who has metastatic breast cancer. He has 1 daughter. 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 Lifelong nonsmoker. Code status full code Smoking status: Never smoker Alcohol intake: current Drinks per week: 2 Alcohol use details: rare drinker while dining out, <1 per week Substance use: current Substance use type: does not use Lack of Transportation: No Lack of Food: Never True Current Housing: I Have Housing Concerned About Future Housing: No Difficulty Paying Gas/Electric Bills: No Difficulty Paying for Meds: No Currently Unemployed: No Education: Associate Degree Difficulty w/ Childcare or Family Care: No Living arrangements: with family Additional living arrangements comments: Spiritual care concerns: No Meds Home Medications and Allergies Home Medications Medication Instructions Recorded Confirmed Type lansoprazole 15 mg capsule,delayed 15 mg PO DAILY PRN Indigestion 02/10/21 03/31/22 History release ascorbic acid (vitamin C) 1,000 mg 1 g PO DAILY 03/15/22 03/31/22 History capsule ezetimibe 10 mg tablet 10 mg PO DAILY 03/15/22 03/31/22 History nini
--- NOTE | 2023-12-10 14:28 | WPDCARDPROC ---
Cardiac Cath Procedure Note Date of procedure:: 12/10/23 Performing physician:: Kay Lopez MD Indication:: Inferior STEMI Brief clinical history:: 73-year-old patient with central chest pain and inferior STEMI.He started having pain last night and presented to our emergency Room around 12 p.m. Procedure Procedure performed:: 1-Moderate sedation that started at 2:36 p.m.and ended at 3:15 p.m. with total duration 39 minutes using 2mg of Versed [id number] fentanyl. The registered nurse was Denise butler 2-Selective left and right coronary angiogram. 3-Left heart catheterization with measurement of LVEDP and measurement of gradient across aortic valve. 4-Right common femoral arterial angiogram. 5-Deployment of 6 Italian Angio-Seal. 6- intravascular ultrasound of the right coronary artery 7- Deployment of drug-eluting stent jayjay 3.5 by 22 jayjay to mid RCA. Sedation/Medication given:: Moderate sedation. Access site:: Right common femoral artery. Estimated blood loss:: 10cc Procedure note:: After informed consent patient was brought in to [employer] with the was draped and prepped in usual manner. Moderate sedation was given and the right groin was infiltrated using 1% lidocaine. Five Italian sheath was obtained using micropuncture needle and the modified Seldinger technique. Selective left coronary angiogram was done using JL4 catheter with the tip of the catheter placed in the left main coronary artery. Selective right coronary angiogram was done using JR4 guide catheter with the tip of the catheter placed to the right coronary artery. after that coronary luge wire was advanced to distal RCA and then balloon angioplasty done using 3 x 10 balloon the mid RCA Under nominal pressure for 20 seconds. Intravascular ultrasound was done. Then we took another balloon 3.5 x 15 inflated ostium pressure 15 seconds. then deployed drug-eluting stent jayjay 3.5 x 22 in the mid RCA under nominal pressure for 22 seconds. we noticed no reflow. 200 mcg of nitroprusside was injected intracoronary with resolution of the no reflow. After that 5 Italian pigtail catheter was advanced across the aortic valve into the left ventricle with measurement of LVEDP and measurement of gradient across aortic valve. Right common femoral arterial angiogram was done. Findings:: 1- left coronary artery is a large artery that divides into large LAD, large circumflex artery. distal left main 20%. 2- left anterior descending artery is a large artery that runs and wraps around the apex. Minimal irregularities. Medium size diagonal branch with minimal irregularities. 3- leftcircumflex artery is a large artery And codominant and has minimal irregularities. 4- right coronary artery Has mid stenosis 99%. ELSA flow 3. 5- LVEDP was 15 mm mercury and no gradient across aortic valve. 6- opening arterial pressure was 148 over 76 and closing pressure was 162/77 7- right femoral artery angiogram shows no significant disease in the right common femoral artery. 8- intravascular ultrasound of the right coronary artery shows mid diameter of the RCA was 3.5 mm. Conclusion:: successful stenting of high-grade stenosis mid RCA. Assessment and Plan Assessment and plan (1) ST elevation (STEMI) myocardial infarction: Code(s): I21.3 - ST elevation (STEMI) myocardial infarction of unspecified site Status: Acute Assessment and Plan: status post stenting to mid RCA. - continue aspirin and Brilinta. - check lipid panel panel. - echo. - aggressive risk factor modification for CAD (2) Elevated blood pressure reading: Code(s): R03.0 - Elevated blood-pressure reading, without diagnosis of hypertension Status: Acute Assessment and Plan: in regards to elevated blood pressure without diagnosis of hypertension, monitor blood pressure and start treating accordingly. Under tremendous amount of stress because his has breast cancer.
--- NOTE | 2023-12-10 14:28 | WPDMODSED ---
Moderate Sedation Note-Pt Data Patient Data Diagnosis: Inferior STEMI Present Complaint: chest pain Procedure to be performed/Plan: coronary angiogram with stenting Allergies Allergy/AdvReac Type Severity Reaction Status Date / Time atorvastatin [From Lipitor] AdvReac Mild Dizziness Verified 03/31/22 17:58 Home Medications Medication Instructions Recorded Confirmed Type lansoprazole 15 mg capsule,delayed 15 mg PO DAILY PRN Indigestion 02/10/21 03/31/22 History release ascorbic acid (vitamin C) 1,000 mg 1 g PO DAILY 03/15/22 03/31/22 History capsule ezetimibe 10 mg tablet 10 mg PO DAILY 03/15/22 03/31/22 History gabapentin 100 mg capsule 100 mg PO TID 03/15/22 03/31/22 History geriatric multivitamin-min 1 tablet PO DAILY 03/15/22 03/31/22 History vitamin B complex (B 1 tablet PO DAILY 03/15/22 03/31/22 History Complex-Vitamin B12 tablet) acetaminophen 500 mg tablet 1,000 mg PO Q6H #90 tabs 04/01/22 Rx apixaban 2.5 mg tablet (Eliquis) 2.5 mg PO Q12HR #28 tabs 04/01/22 Rx celecoxib 200 mg capsule (Celebrex) 200 mg PO DAILY@0800 #60 caps 04/01/22 Rx cephalexin 500 mg capsule 500 mg PO Q6HR #56 caps 04/01/22 Rx oxycodone 5 mg tablet 5 mg PO Q4H #40 tabs 04/01/22 Rx polyethylene glycol 3350 17 gram 17 g PO QAM #30 ea 04/01/22 Rx oral powder packet (Miralax) sennosides 8.6 mg-docusate sodium 2 tab PO BID #60 tabs 04/01/22 Rx 50 mg tablet (Senokot-S) amoxicillin 875 mg-potassium 1 tablet PO Q12H #20 tabs 03/11/23 Rx clavulanate 125 mg tablet hydrocodone 5 mg-acetaminophen 325 1 tablet PO Q6H PRN pain #12 tabs 03/11/23 Rx mg tablet ondansetron 4 mg disintegrating 4 mg PO Q6H PRN nausea and 03/11/23 Rx tablet vomiting #10 tabs Sedation/Anesthesia: No previous sedation/anesthesia problems (including family history). [facility] Past Medical History Medical History (Updated 12/10/23 @ 13:55 by Melanie Mckeon MD) Colon cancer screening GERD (gastroesophageal reflux disease) Hyperlipidemia Neuropathy Obesity Snoring Surgical History Surgical History (Updated 04/01/22 @ 06:47 by JACQUELINE Ashraf) H/O arthroscopy of left knee History of carpal tunnel surgery Bilateral History of tonsillectomy History of total knee arthroplasty Family History Family History Father Cerebrovascular accident Mother Emphysema of lung Social History Social History Social History: The patient lives with his who has metastatic breast cancer. He has 1 daughter. 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 Lifelong nonsmoker. Code status full code Smoking status: Never smoker Alcohol intake: current Drinks per week: 2 Alcohol use details: rare drinker while dining out, <1 per week Substance use: current Substance use type: does not use Lack of Transportation: No Lack of Food: Never True Current Housing: I Have Housing Concerned About Future Housing: No Difficulty Paying Gas/Electric Bills: No Difficulty Paying for Meds: No Currently Unemployed: No Education: Associate Degree Difficulty w/ Childcare or Family Care: No Living arrangements: with family Additional living arrangements comments: Spiritual care concerns: No Mod Sed Physical Exam Physical Exam Pre Procedural Exam: Normal: Appearance, Eyes, Ears, Nose, Neck, Throat, Airway, Lungs, Heart Size, Heart Rate, Heart Rhythm, Neuro Exam, Abdomen, Liver, Kidneys, Spleen, Breasts, Genitalia, Extremities and Skin Hours since solid foods: 8 Hours since liquid intake: 8 Mallampati Classification: class 1 Internal Medicine - PN: Obj Da Vital Signs Vital Signs: Vital Signs - 24 hr 12/10/23 11:58 12/10/23 13:42 12/10/23 12:58 Temperature 35.9 C L Pulse Rate 74 72 Respiratory Rate 20 13 Blood Pressure 179/95 H 166/100 H Pulse Oximetry 98 99 Oxygen Delivery
--- NOTE | 2023-12-10 15:20 | PC.NURSE ---
Report received from Isela Ramirez RN.
[2023-12-10 15:54] LABS: Hemoglobin A1C 5.9 % (<5.7)
[2023-12-10 16:02] LABS: Basophils Percent Auto 0.3 % (0.2-1.2); Eosinophils Percent Auto 0.2 % (0-4.4); Hematocrit 43.8 % (42.0-52.0); Hemoglobin 14.4 g/dL (14.0-18.0); Immature Granulocyte Absolute 0.04 K/mm3 (0.00-0.031); Immature Granulocyte Percent A 0.4 % (0-0.5); Lymphocytes Absolute Auto 0.91 K/mm3 (0.9-3.2); Lymphocytes Percent Auto 8.9 % (18.3-44.2); Mean Corpuscular HGB Conc 32.9 g/dl (32-36); Mean Corpuscular Hemoglobin 28.5 pg (26-34); Mean Corpuscular Volume 86.7 fl (80-100); Mean Platelet Volume 8.7 fl (7.4-10.4); Monocytes Absolute Auto 0.4 K/mm3 (0.1-0.6); Monocytes Percent Auto 3.6 % (2.6-8.5); Neutrophils Absolute Auto 8.9 K/mm3 (1.3-6.7); Neutrophils Percent Auto 86.6 % (45.5-73.1); Platelet Count Result 197 k/mm3 (150-375); Red Blood Count 5.05 M/mm3 (4.6-6.20); Red Cell Distribution Width 13.2 % (11.5-14.5); White Blood Count 10.3 K/mm3 (4.5-10.0)
[2023-12-10] MEDS: SODIUM CHLORIDE 0.9% IV 1,000 ML 125 ML IV CONT (16:05)
[2023-12-10 16:11] LABS: Cholesterol 175 mg/dL (0-200); HDL Direct 48 mg/dL; Triglycerides 159 mg/dL (<150)
--- NOTE | 2023-12-10 16:15 | ADMGEN ---
This patient, Steve Ramirez JrDinorah, was admitted to Intensive Care Unit-2. Patient/family oriented to hospital policies and general routines including ID bracelet, bed and alarms, visiting hours, pain management, procedures, bathroom and other care routines, personal items, smoking policy, room service/diet, and visiting hours. Information on how to activate the Rapid Response Team has been discussed. Patient/Family are encouraged to report perceived risks to care and to ask questions if they do not understand what they are told or what they should do.
[2023-12-10 16:22] LABS: LDL Cholesterol Direct 97 mg/dL
[2023-12-10] MEDS: MORPHINE SULFATE (*CRX) 2 MG/ML INJ IV PUSH (16:39)
[2023-12-10 16:51] LABS: INR 1.7; Prothrombin Time 20.4 Seconds (11.1-14.7)
[2023-12-10 16:54] LABS: Partial Thromboplastin Time 142.6 Seconds (22.3-36.8)
[2023-12-10 17:44] LABS: MRSA (PCR) NOT DETECTED (NOT DETECTE)
--- NOTE | 2023-12-10 18:32 | PC.NURSE ---
Patient and spouse received Stent Card at bedside.
[2023-12-10] MEDS: TICAGRELOR 90 MG TABLET PO (20:41)
[2023-12-10] MEDS: ACETAMINOPHEN 325 MG TABLET 650 MG PO (21:24)
--- NOTE | 2023-12-10 23:07 | ECG_ITS ---
Test Date: 2023-12-10 23:07:43 Measurements Intervals [place] Rate: 72 P: 36 MO: 154 QRS: 8 QRSD: 93 T: -11 QT: 362 QTc: 397 Interpretive Statements SINUS RHYTHM INFERIOR MYOCARDIAL INFARCTION [40+ ms Q WAVE AND/OR ST/T ABNORMALITY IN II/aVF], OF INDETERMINATE AGE WARNING: DATA QUALITY MAY AFFECT INTERPRETATION Compared to ECG 12/10/2023 13:37:13 ST (T wave) deviation no longer present Electronically Signed On 12-11-2023 11:33:50 CDT by Inocencio Martinez M.D.
--- NOTE | 2023-12-10 23:59 | PC.NURSE ---
2300 called to room via patient for c/o chest pain 5/10 non-radiating, similar to the chest pain when experiencing the STEMI. Described as an ache see vitals and provider communication intervention
[2023-12-11] VITALS (21 sets, daily range): BP systolic 113–179; BP diastolic 44–91; PULSE 64–84; RESP 14–18; TEMP 36.3–36.9; O2SAT 97–100
[2023-12-11] MEDS: carvediloL 3.125 MG TABLET PO ×2 (00:11→09:09)
[2023-12-11] MEDS: MAG HYDROX/AL HYDROX/SIMETH 30 ML UDC PO (00:11)
[2023-12-11 03:48] LABS: Basophils Percent Auto 0.3 % (0.2-1.2); Eosinophils Absolute Auto 0.1 K/mm3 (0-0.3); Eosinophils Percent Auto 0.8 % (0-4.4); Hemoglobin 13.2 g/dL (14.0-18.0); Immature Granulocyte Absolute 0.03 K/mm3 (0.00-0.031); Immature Granulocyte Percent A 0.3 % (0-0.5); Lymphocytes Absolute Auto 1.51 K/mm3 (0.9-3.2); Lymphocytes Percent Auto 15.3 % (18.3-44.2); Mean Corpuscular HGB Conc 32.2 g/dl (32-36); Mean Corpuscular Hemoglobin 27.8 pg (26-34); Mean Corpuscular Volume 86.5 fl (80-100); Mean Platelet Volume 8.8 fl (7.4-10.4); Monocytes Absolute Auto 0.8 K/mm3 (0.1-0.6); Monocytes Percent Auto 7.7 % (2.6-8.5); Neutrophils Absolute Auto 7.5 K/mm3 (1.3-6.7); Neutrophils Percent Auto 75.6 % (45.5-73.1); Platelet Count Result 197 k/mm3 (150-375); Red Blood Count 4.74 M/mm3 (4.6-6.20); Red Cell Distribution Width 13.2 % (11.5-14.5); White Blood Count 9.9 K/mm3 (4.5-10.0)
[2023-12-11 04:01] LABS: Anion Gap 7 mmol/L (4-12); Blood Urea Nitrogen 14 mg/dL (9-20); Calcium 8.9 mg/dL (8.4-10.2); Carbon Dioxide 26 mmol/L (22-30); Chloride 99 mmol/L (98-107); Estimated CRCL calculation 92 ml/min; Estimated Glomerular Filt Rate > 60; Glucose 117 mg/dL (65-110); Potassium 4.4 mmol/L (3.4-5.0); Sodium 132 mmol/L (137-145)
--- NOTE | 2023-12-11 07:00 | ECG_ITS ---
Test Date: 2023-12-11 07:58:11 Measurements Intervals [place] Rate: 66 P: 51 OR: 171 QRS: 5 QRSD: 91 T: -37 QT: 379 QTc: 400 Interpretive Statements SINUS RHYTHM INFERIOR MYOCARDIAL INFARCTION [40+ ms Q WAVE AND/OR ST/T ABNORMALITY IN II/aVF], OF INDETERMINATE AGE WARNING: DATA QUALITY MAY AFFECT INTERPRETATION Compared to ECG 12/10/2023 23:07:43 No significant changes Electronically Signed On 12-11-2023 11:39:07 CDT by Inocencio Martinez M.D.
--- NOTE | 2023-12-11 08:12 | WPDCNINT ---
Assessment and Plan Assessment and plan (1) ST elevation (STEMI) myocardial infarction: Code(s): I21.3 - ST elevation (STEMI) myocardial infarction of unspecified site Status: Acute Assessment and Plan: 12/10/2023: Patient presented with chest pain, radiated to the back, nausea but no shortness of breath or vomiting. -patient was found to have inferior ID on EKG, was taken to the metallurgy laboratory technician, status post PTCA/PCI with KIARA x1 to mid RCA -CT chest, abdomen and pelvis were negative for aortic dissection or aneurysm. -cardiology following the patient -continue Coreg aspirin, Brilinta -will discuss with Cardiology regarding adding a statin (2) Hyperlipidemia: Code(s): E78.5 - Hyperlipidemia, unspecified Status: Acute Assessment and Plan: Will discuss with Cardiology regarding adding a statin (3) Elevated blood pressure reading: Code(s): R03.0 - Elevated blood-pressure reading, without diagnosis of hypertension Status: Acute Assessment and Plan: Continue Coreg (4) Neuropathy: Code(s): G62.9 - Polyneuropathy, unspecified Status: Acute Assessment and Plan: Will restart gabapentin Plan DVT prophylaxis: Status post cardiac catheterization and PCI Stress ulcer prophylaxis: Continue lansoprazole Nutrition: Heart healthy diet Code Status: Full code Critical Care Time Spent: 46 minutes Discussed with patient and his spouse at bedside and updated them with his condition and plan of care. I answered all questions. They are aware that Cardiology be coming to evaluate the today Due to a high probability of clinically significant, life threatening deterioration, the patient required my highest level of preparedness to intervene emergently and I personally spent this critical care time directly and personally managing the patient. This critical care time included obtaining a history; examining the patient; pulse oximetry; ordering and review of studies; arranging urgent treatment with development of a management plan; evaluation of patient's response to treatment; frequent reassessment; and discussions with other providers. It was exclusive of separately billable procedures and treating other patients and teaching time. Please see Assessment and Plan section and the rest of the note for further information on patient assessment and treatment This dictation may have been done utilizing a voice recognition system. Attempts have been made to correct errors. However, there may be uncorrected grammatical, spelling, and recognitions errors present. Procedural Nurse Consult Note Consult date: 12/11/23 Reason for consult: ST-elevation ID status post PTCA/PCI with KIARA x1 to mid RCA HPI: Steve Ramirez Jr. is a 73 year old male past medical history of GERD, neuropathy, hyperlipidemia presented the ED on 12/10/2023 with complains of chest pain, initial EKG showed subtle ST elevation in the inferior leads and repeat EKG showed fraying ST elevations in following the inferior leads. Patient had substernal chest pain radiating to the back. Patient complained of nausea but no vomiting. Patient does not have any history of cardiac disease. CTA chest abdomen and pelvis showed no aortic dissection or aneurysm. No acute processes taking the chest, abdomen or pelvis. 2.0 cm hyperenhancing right liver lobe lesion, recommended non emergent but timely MR of liver for further evaluation. Patient was taken to the metallurgy laboratory technician status post PTCA/PCI with KIARA x1 to mid RCA. Postprocedure patient was transferred to the ICU for further management Patient seen and examined this morning in the ICU, pleasant gentleman in no acute distress, denies any nausea, vomiting, chest pain, shortness of breath. He did state he had some chest pain yesterday which resolved the medications. No arrhythmias noted. Good urine output, afebrile, hemodynamically stable Review of Systems Review of Systems: All systems reviewed &
[2023-12-11] MEDS: PANTOPRAZOLE 40 MG TABLET PO (09:06)
[2023-12-11] MEDS: ASPIRIN 81 MG ENTERIC TABLET PO (09:06)
[2023-12-11] MEDS: TICAGRELOR 90 MG TABLET PO ×2 (09:06→20:29)
[2023-12-11] MEDS: MULTIVITAMINS /C LUTEIN (CENTRUM SILVER) TABLET *BKC 1 TAB PO (09:06)
[2023-12-11] MEDS: GABAPENTIN 100 MG CAPSULE PO ×3 (09:06→17:14)
--- NOTE | 2023-12-11 11:00 | PM.PNCARD ---
Progress Note: A&P Assessment and Plan (1) ST elevation (STEMI) myocardial infarction: Code(s): I21.3 - ST elevation (STEMI) myocardial infarction of unspecified site Status: Acute Plan STEMI inferior wall status post PCI to RCA with drug-eluting stent Hypertension controlled Mixed dyslipidemia Plan Aspirin ticagrelor Add Lipitor 80 mg daily Increase Coreg to 6.25 mg b.i.d. Subjective Date/time seen: 12/11/23 11:00 Interval history: No acute events Review of Systems Review of Systems: All systems reviewed & are unremarkable except as noted in HPI and below Exam Narrative: General: Pleasant gentleman in no acute distress HEENT:? Pupils are equal and reactive, sclera is clear, moist oral mucosa Neck:? Supple Respiratory:? Clear to auscultation bilaterally, adequate air entry, no wheezing Cardiac:? S1-S2 was normal, regular rate and rhythm Abdomen:? Soft, nontender, nondistended, obese, normoactive bowel sounds Extremities:? No edema, palpable pedal pulses, right groin site with no evidence of ecchymosis or hematoma Neuro:? Patient is awake, alert, oriented, nonfocal, answers to questions appropriately and follows simple commands in all extremities Skin:? No skin lesions, warm and dry Psych:? Normal mentation and affect Objective Data Vital Signs Vital Signs: Vital Signs - 24 hr 12/10/23 11:58 12/10/23 13:42 12/10/23 12:58 Temperature 35.9 C L Pulse Rate 74 72 Pulse Rate [Right Pedal (Dorsalis Pedis) Palpation] Respiratory Rate 20 13 Blood Pressure 179/95 H 166/100 H Pulse Oximetry 98 99 Oxygen Delivery Room Air Room Air Oxygen Flow Rate 12/10/23 13:01 12/10/23 13:16 12/10/23 13:34 Temperature 36.6 C 36.8 C Pulse Rate 70 77 77 Pulse Rate [Right Pedal (Dorsalis Pedis) Palpation] Respiratory Rate 14 20 17 Blood Pressure 167/95 H 175/100 H 173/87 H Pulse Oximetry 99 99 97 Oxygen Delivery Oxygen Flow Rate 12/10/23 13:45 12/10/23 13:53 12/10/23 14:00 Temperature Pulse Rate 105 H 79 72 Pulse Rate [Right Pedal (Dorsalis Pedis) Palpation] Respiratory Rate 15 16 16 Blood Pressure 186/95 H Pulse Oximetry 100 100 98 Oxygen Delivery Oxygen Flow Rate 12/10/23 14:01 12/10/23 14:16 12/10/23 14:18 Temperature Pulse Rate 75 67 Pulse Rate [Right Pedal (Dorsalis Pedis) Palpation] Respiratory Rate 15 Blood Pressure 163/93 H 166/93 H Pulse Oximetry 98 100 Oxygen Delivery Oxygen Flow Rate 12/10/23 15:45 12/10/23 16:10 12/10/23 16:25 Temperature 36.6 C Pulse Rate 69 69 71 Pulse Rate [Right Pedal (Dorsalis Pedis) Palpation] Respiratory Rate 14 13 14 Blood Pressure 142/79 H 144/87 H 145/85 H Pulse Oximetry 99 99 100 Oxygen Delivery Oxygen Flow Rate 12/10/23 16:55 12/10/23 17:25 12/10/23 16:05 Temperature Pulse Rate 67 75 68 Pulse Rate [Right Pedal (Dorsalis Pedis) Palpation] Respiratory Rate 15 16 Blood Pressure 132/84 133/71 Pulse Oximetry 99 99 Oxygen Delivery Oxygen Flow Rate 12/10/23 16:05 12/10/23 18:00 12/10/23 18:00 Temperature Pulse Rate 75 77 77 Pulse Rate [Right Pedal (Dorsalis Pedis) Palpation] Respiratory Rate 16 14 Blood Pressure 139/90 Pulse Oximetry 99 100 Oxygen Delivery Room Air Oxygen Flow Rate 12/10/23 18:25 12/10/23 19:00 12/10/23 20:00 Temperature 36.8 C Pulse Rate 81 73 72 Pulse Rate [Right Pedal (Dorsalis Pedis) Palpation] 72 Respiratory Rate 15 15 15 Blood Pressure 139/78 134/86 134/82 Pulse Oximetry 100 99 99 Oxygen Delivery Oxygen Flow Rate 12/10/23 20:00 12/10/23 20:00 12/10/23 21:00 Temperature 36.8 C Pulse Rate 72 72 Pulse Rate [Right Pedal (Dorsalis Pedis) Palpation] 72 Respiratory Rate 15 Blood Pressure 134/82 Pulse Oximetry 99 Oxygen Delivery Oxygen Flow Rate 12/10/23 20:00 12/10/23 21:15 12/10/23 22:00 Temperature Pulse Rate 72 71 Pulse Rate [Right Pedal (Dorsalis Pedis) Pa
--- NOTE | 2023-12-11 11:17 | PC.NURSE ---
This patient, Steve Ramirez , was transferred to [facility] on 12/11/23 at 1110. Personal belongings sent with patient. Report given to Marcia. Appropriate documentation sent with patient.
[2023-12-11] MEDS: carvediloL 6.25 MG TABLET PO (20:29)
[2023-12-12] VITALS (13 sets, daily range): BP systolic 107–130; BP diastolic 64–71; PULSE 65–84; RESP 16–20; TEMP 36.4–36.8; O2SAT 96–99
--- NOTE | 2023-12-12 | ECHO_ITS ---
Patient Info Name: Steve Ramirez Age: 73 years : 1950 Gender: Male Ht: 69 in Wt: 258 lbs BSA: 2.44 m2 HR: 83 bpm BP: 128 / 66 mmHg Heart Rhythm: Sinus Rhythm Technical Quality: Fair Exam Date: 12/12/2023 2:34 PM Exam Location: Echo Lab Patient Status: Inpatient Admit Date: 12/10/2023 Staff Ordering Physician: Alexandrea Singh Air Lift Operator: Dianne Gotti RDCS Attending Provider: Kay Lopez MD Referring Physician: Samantha BENITO; Exam Type: CA echo dop color flow w con Study Info Indications - stemi Complete two-dimensional, color flow and Doppler transthoracic echocardiogram is performed with contrast to opacify the left ventricle and to improve the deliniation of the left ventricle endocardial borders. Contrast/Agitated Saline Contrast/Ag. Saline: Definity Amount: 2.00 ml Administered By: Dianne Gotti RDCS Existing IV Access: Yes IV Access Condition: patent with no signs of infiltration Summary 1. Mild left ventricular hypertrophy with well-preserved systolic function no significant wall motion abnormalities, normal ejection fraction. 2. Grade 1 diastolic noncompliance. 3. Small amount of MR. Left Ventricle Left ventricular chamber dimension is normal. Left ventricular systolic function is normal, estimated at 60-65%. There is mild concentric increased left ventricular wall thickness. The left ventricular diastolic function is grade I diastolic dysfunction. Right Ventricle Right ventricular chamber dimension is normal. Left Atria Left atrial chamber dimension is normal. Right Atria Right atrial chamber dimension is normal. Aortic Valve The aortic valve is normal. Pulmonic Valve The pulmonic valve is normal. Mitral Valve The mitral valve has normal leaflets. There is trace mitral valve regurgitation. Tricuspid Valve The tricuspid valve leaflets are normal. Pericardium/Pleural The pericardium appears normal. Aorta The aortic root size at the sinus of Valsalva is normal. Left Ventricular Outflow Tract Name Value Normal LVOT 2D LVOT Diameter 2.12 cm LVOT Doppler LVOT Peak Gradient 4 mmHg LVOT Mean Gradient 2 mmHg LVOT VTI 18.82 cm LVOT VTI/AV VTI Ratio 0.64 LVOT Stroke Volume 66.72 ml LVOT CO 4.64 l/min LVOT CI 1.91 L/min/m2 Pulmonic Valve Name Value Normal RVOT Doppler RVOT Peak Gradient 2 mmHg PV Doppler PV Peak Gradient 6 mmHg Mitral Valve Name Value Normal
[2023-12-12] MEDS: ASPIRIN 81 MG ENTERIC TABLET PO (09:53)
[2023-12-12] MEDS: carvediloL 6.25 MG TABLET PO (09:53)
[2023-12-12] MEDS: TICAGRELOR 90 MG TABLET PO (09:54)
[2023-12-12] MEDS: MULTIVITAMINS /C LUTEIN (CENTRUM SILVER) TABLET *BKC 1 TAB PO (09:54)
[2023-12-12] MEDS: GABAPENTIN 100 MG CAPSULE PO ×2 (09:54→17:33)
--- NOTE | 2023-12-12 10:01 | P.DS_ITS ---
DS: Admitting Diagnosis Discharge Date 12/12/2023 Admitting Diagnosis STEMI DS: Summary Hospital Course Hospital Course: 73-year-old patient with difficulty of hearing with history of hyperlipidemia who presents to the hospital with chest pain. Initial EKG showed subtle ST elevations in inferior leads and repeat EKG after that shows davey ST elevations involving the inferior leads. He was taken emergently to the cardiac laborer chemical processing and underwent PCI/KIARA x 1 to the mid RCA. Time Spent with Patient Time attestation: Total time spent providing and/or coordinating discharge services: Exam Const: General: cooperative, healthy appearing, comfortable, no acute distress, well developed and well nourished Nutritional Appearance: well nourished Orientation/consciousness: patient oriented x3 HENMT: Head: normal to inspection, normocephalic and atraumatic Ears: hearing grossly normal bilaterally Face/Nose/Sinus: Normal external nose present and normal facial exam Face and sinus: normal facial exam Mouth: Yes moist mucous membranes Eyes: General: appearance normal, both eyes and all related structures Eyelids: eyelids normal Sclera: sclerae normal Neck: Neck: normal visual inspection and full ROM Carotids: no bruits Lymphatic: lymphedema not noted Chest: Chest palpation & inspection: normal inspection of the chest and normal palpation of entire chest wall Resp: Effort & Inspection: normal respiratory effort and not labored Auscultation: clear to auscultation bilaterally, no crackles, no rales and no wheezes Cardio: Jugular venous distension: no JVD Rate: regular rate Rhythm: regular rhythm Heart sounds: S1 normal heart sound present, S2 normal heart sound present and no murmurs Bruits: no carotid bruits GI: Inspection: normal to inspection and non-distended Auscultation: normal bowel sounds Rectal Exam: deferred Back/Spine/Pelvis: Back: No erythema Skin: General skin exam: normal color, no erythema and no pallor Lesions: no lesions Rashes: no rashes Neuro: General: patient oriented x3 and moves all extremities Cranial nerves: Yes facial symmetry Speech: normal speech and No Abnormal speech present Extrem: General: normal to inspection and full ROM Psych: Appearance: grossly normal and well kempt Affect: normal affect Discharge Plan Discharge Patient Instructions: Aspirin (By mouth), Carvedilol (By mouth), Ticagrelor (By mouth), Heart Attack (GEN), Coronary Artery Disease (GEN), Heart Healthy Diet (DC), Acute Coronary Syndrome (DC), Heart Catheterization (GEN) Discharge Medications: New Brilinta 90 mg Tablet 90 mg PO Q12HR Qty: 60 11RF Discontinued celecoxib [Celebrex] 200 mg Capsule 200 mg PO DAILY@0800 Qty: 60 0RF No Action gabapentin 100 mg capsule 100 mg PO TID ezetimibe 10 mg tablet 10 mg PO DAILY vitamin B complex [B Complex-Vitamin B12] Tablet 1 tablet PO DAILY geriatric multivitamin-min Tablet 1 tablet PO DAILY ascorbic acid (vitamin C) 1,000 mg Capsule 1 g PO DAILY lansoprazole 15 mg Capsule,Delayed Release(Dr/Ec) 15 mg PO DAILY PRN (Reason: Indigestion) Date of admission: 12/10/23 13:46 Primary Care Provider: Sinan,Mark Massey Admitting Provider: Kay Lopez Attending physician on admission: Kay Lopez Condition: Critical
[2023-12-12] MEDS: PERFLUTREN LIPID MICROSPHERES 1.5 ML VIAL DILUTED TO 10 ML TOTAL VOLUME IV PUSH (15:15)
--- NOTE | 2023-12-12 15:45 | IVDEFINITY ---
Prior to administration of IV Definity the patient was educated on the risks and benefits of the imaging enhancing agent including potential adverse side effects. The patient verbalized understanding. Allergies were verified. No exclusion criteria were identified and at least one of the following inclusion criteria were met: 1) physician request, 2) patient technically difficult to image (per the [place] [employer] guidelines of two or more segments not discernable within the apical view), or 3) questionable left ventricular function. ?
== END 2023-12-12 17:40 | disposition home or self-care (01) | DRG 322 ==
LOC: ANHED 13:22 → ANHICU 13:55 → ANHIMU 12-11 20:49 → ANHICU 12-12 18:05 → ANHIMU 12-12 18:05
PROVIDERS: Internal Medicine; Preventive Medicine Aerospace Medicine; Admitting Provider Internal Medicine Cardiovascular Disease; Emergency Provider Emergency Medicine; PCP Internal Medicine; Visit Provider Nurse Practitioner
PROC: 4A023N7 Measurement of Cardiac Sampling and Pressure, Left Heart, Percutaneous Approach (ICD-10-PCS; CPT 93452; principal; 2023-12-10 14:05)
PROC: 4A023N7 Measurement of Cardiac Sampling and Pressure, Left Heart, Percutaneous Approach (ICD-10-PCS; 2023-12-10 14:05)
PROC: 4A023N7 Measurement of Cardiac Sampling and Pressure, Left Heart, Percutaneous Approach (ICD-10-PCS; 2023-12-10 14:05)
PROC: 4A023N7 Measurement of Cardiac Sampling and Pressure, Left Heart, Percutaneous Approach (ICD-10-PCS; 2023-12-10 14:05)
DX: I21.19 ST elevation (STEMI) myocardial infarction involving other coronary artery of inferior wall (principal); R03.0 Elevated blood-pressure reading, without diagnosis of hypertension; K21.9 Gastro-esophageal reflux disease without esophagitis; E78.5 Hyperlipidemia, unspecified; G62.9 Polyneuropathy, unspecified; Z96.659 Presence of unspecified artificial knee joint; Z79.01 Long term (current) use of anticoagulants
CPT/HCPCS: 36415; 71046; 71275; 74174; 80048; 80053; 80061; 83036; 83690; 84484; 85025; 85610; 85730; 87641; 92978; 93005; 93458; 99285; A9270; C1725; C1753; C1760; C1769; C1874; C1887; C1894; C7532; C8929; C9606; G0269; J0583; J1644; J2003; J2250; J2270; J3010; J7030; J7040; J7050; Q9957; Q9967

== ENCOUNTER 2024-01-16 01:14 | Inpatient (IN) | payer MEDICARE, OTHER, SELFPAY ==
[2024-01-16] VITALS (18 sets, daily range): BP systolic 124–171; BP diastolic 64–99; PULSE 56–94; RESP 12–20; TEMP 36.2–37.1; O2SAT 97–100; BMI 37.7
--- NOTE | ~2024-01-16 | XR_ITS ---
Portable chest x-ray Comparison: 12/10/2023 Clinical History: Chest pain Findings: Lungs are clear, without focal consolidation or pleural effusion. Cardiomediastinal silho uette is stable. Bones and soft tissues are unremarkable. Impression: Normal chest. Reviewed, dictated and finalized at [facility]. O BUILDER Impression: Normal chest.
--- NOTE | 2024-01-16 01:17 | ECG_ITS ---
Test Date: 2024-01-16 01:21:17 Measurements Intervals [place] Rate: 71 P: 37 NE: 134 QRS: 10 QRSD: 91 T: -29 QT: 352 QTc: 384 Interpretive Statements SINUS RHYTHM INFERIOR INFARCT, AGE INDETERMINATE BASELINE ARTIFACT- I, II, III, AVR, AVL, AVF, V3-V6 ABNORMAL ECG Compared to ECG 12/11/2023 07:58:11 No significant changes Electronically Signed On 01-16-2024 06:46:22 RESIDENTIAL SALES CONSULTANT by Bennie Zuluaga D.O.
[2024-01-16] MEDS: ASPIRIN 81 MG CHEWABLE TABLET 324 MG PO (01:25)
[2024-01-16 01:40] LABS: Basophils Percent Auto 0.5 % (0.2-1.2); Eosinophils Absolute Auto 0.2 K/mm3 (0-0.3); Eosinophils Percent Auto 2.2 % (0-4.4); Hematocrit 39.8 % (42.0-52.0); Hemoglobin 13.5 g/dL (14.0-18.0); Immature Granulocyte Absolute 0.02 K/mm3 (0.00-0.031); Immature Granulocyte Percent A 0.3 % (0-0.5); Lymphocytes Absolute Auto 1.41 K/mm3 (0.9-3.2); Lymphocytes Percent Auto 18.6 % (18.3-44.2); Mean Corpuscular HGB Conc 33.9 g/dl (32-36); Mean Corpuscular Volume 82.4 fl (80-100); Mean Platelet Volume 8.9 fl (7.4-10.4); Monocytes Absolute Auto 0.6 K/mm3 (0.1-0.6); Monocytes Percent Auto 8.3 % (2.6-8.5); Neutrophils Absolute Auto 5.3 K/mm3 (1.3-6.7); Neutrophils Percent Auto 70.1 % (45.5-73.1); Platelet Count Result 197 k/mm3 (150-375); Red Blood Count 4.83 M/mm3 (4.6-6.20); White Blood Count 7.6 K/mm3 (4.5-10.0)
[2024-01-16 01:52] LABS: Alanine Aminotransferase 28 U/L (6-50); Albumin Level 4.5 g/dL (3.5-5.1); Alkaline Phosphatase 61 U/L (38-126); Anion Gap 8 mmol/L (4-12); Aspartate Amino Transferase 35 U/L (17-59); Bilirubin,Total 0.7 mg/dL (0.2-1.3); Blood Urea Nitrogen 12 mg/dL (9-20); Calcium 9.4 mg/dL (8.4-10.2); Carbon Dioxide 23 mmol/L (22-30); Chloride 97 mmol/L (98-107); Estimated CRCL calculation 102 ml/min; Estimated Glomerular Filt Rate > 60; Glucose 113 mg/dL (65-110); Lipase 123 U/L (23-300); Potassium 4.4 mmol/L (3.4-5.0); Sodium 128 mmol/L (137-145)
[2024-01-16 01:53] LABS: Prothrombin Time 13.1 Seconds (11.1-14.7)
[2024-01-16 01:54] LABS: Partial Thromboplastin Time 34.4 Seconds (22.3-36.8)
[2024-01-16 02:00] LABS: Troponin I 0.016 ng/mL (0.000-0.034)
--- NOTE | 2024-01-16 02:11 | PC.NURSE ---
Patient told nurse that his chest pain was now a 5/10. Notified EDP Dr. Parra.
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
[2024-01-16 02:39] LABS: NT Pro B Type Natriuretic Pept 356 pg/mL (19.9-100)
--- NOTE | 2024-01-16 04:01 | ECG_ITS ---
Test Date: 2024-01-16 04:07:43 Measurements Intervals [place] Rate: 56 P: 27 DC: 131 QRS: -2 QRSD: 92 T: -30 QT: 404 QTc: 392 Interpretive Statements SINUS BRADYCARDIA INFERIOR MYOCARDIAL INFARCTION , OF INDETERMINATE AGE ABNORMAL ECG Compared to ECG 01/16/2024 01:21:17 HEART RATE HAS DECREASED Electronically Signed On 01-16-2024 06:48:41 [employer] by Bennie Zuluaga D.O.
[2024-01-16 04:32] LABS: Troponin I 0.019 ng/mL (0.000-0.034)
--- NOTE | 2024-01-16 05:19 | ECG_ITS ---
Test Date: 2024-01-16 09:21:21 Measurements Intervals [place] Rate: 59 P: 54 DE: 138 QRS: 13 QRSD: 94 T: -25 QT: 378 QTc: 375 Interpretive Statements SINUS BRADYCARDIA INFERIOR INFARCT, AGE INDETERMINATE BASELINE ARTIFACT- I, II, III, AVR, AVL, AVF, V1 ABNORMAL ECG Compared to ECG 01/16/2024 04:07:43 No significant changes Electronically Signed On 01-16-2024 10:21:31 [employer] by Bennie Zuluaga D.O.
[2024-01-16] MEDS: NITROGLYCERIN SL 0.4 MG TABLET SUBLINGUAL (05:21)
[2024-01-16] MEDS: ACETAMINOPHEN 325 MG TABLET 650 MG PO (05:28)
--- NOTE | 2024-01-16 05:32 | PC.NURSE ---
0518: Patient called out and states his chest pain is back 0521: CP 4/10, RR 12; HR 60bpm SR; SPO2 99% RA; BP 147/81; T 98.1. First nitro given. 0526: CP 4/10, RR 13; HR 68bpm SR; SPO2 98% RA; BP 124/69; T 98. Second nitro withheld.
--- NOTE | 2024-01-16 06:14 | PC.NURSE ---
This patient, Steve Ramirez Jr., was admitted to IMU Room 206-01 01/16/24 at 0548. Patient/family oriented to hospital policies and general routines including ID bracelet, bed and alarms, visiting hours, pain management, procedures, bathroom and other care routines, personal items, smoking policy, room service/diet, and visiting hours. Information on how to activate the Rapid Response Team has been discussed. Patient/Family are encouraged to report perceived risks to care and to ask questions if they do not understand what they are told or what they should do.
[2024-01-16 07:40] LABS: Troponin I 0.017 ng/mL (0.000-0.034)
--- NOTE | 2024-01-16 08:33 | PM.IMHP ---
H&P: HPI History of Present Illness Date/Time: 01/16/24 08:33 Chief Complaint: Chest pain Narrative: 73yo male with CAD with recent STEMI here for chest pain. Patient was presented with chest pain on 12/09 and found to have STEMI and underwent LHC showing mid-RCA 99% lesion with successful placement of KIARA later that same day. He also had 20% stenosis of the distal left main, minimal irregularities to the LAD and LCX. Echo showing EF 60-65% with normal LV fxn and mild concentric LVH, Grade I diastolic dysfxn and minimal valve disease. He ws discharged on 12/11 on Brilinta, Coreg, ASA, Zetia and Crestor. Since discharge, patient has been having chest pain 2-3 times per day. Can last up to an hour. He describes as an 'ache'. It occurs at rest. He has been walking up to 1.5 miles per day most days and does not have the chest pain with activity. This pain is unlike the pain he experienced with his STEMI. He has been under increased stress because his has stage IV breast cancer and also recently underwent cholecystectomy. The achy chest pain is across the chest and occasionally will radiate down to the left upper arm. It is not associated with shortness of breath, nausea or diaphoresis. The pain is not pleuritic, palpable or positional. He does not have nitroglycerin at home. Tylenol does not help. Nothing seems to make it worse. It is not associated with food. On the evening prior to admission, patient again had the achy chest pain whole watching TV that came on about 3 hours after eating. He had 2 further episodes that were very similar. He also had stool urgency but no diarrhea. Patient went to bed around 11:30 p.m. but then developed left chest/flank chest pain that felt like ?needles with symptoms lasting few seconds but then recurring. he has never had shingles but did have the vaccine 2014. Because of this new symptom, his brought him to the emergency room for evaluation. In the ED, he was hemodynamically stable. BP elevated at 171/85. No fevers, tachycardia or hypoxia. EKG showing normal sinus with inferior infarct but no change from EKG last month. Repeat EKG showing no significant change. CXR was clear. CBC, PT/PTT and CMP unremarkable except for sodium of 128. Troponin negative x3. BNP 356. Lipase normal. He was given ASA, NTG and tylenol and admitted for further care. He does drink excessive about of free water. Review of Systems Review of Systems: All systems reviewed & are unremarkable except as noted in HPI and below PMFSH Past Medical History Medical History CAD (coronary artery disease) Hx of STEMI 12/2023 s/p KIARA to mid-RCA Colon cancer screening GERD (gastroesophageal reflux disease) Hyperlipidemia Neuropathy Obesity Snoring Surgical History Surgical History H/O arthroscopy of left knee History of carpal tunnel surgery Bilateral History of tonsillectomy History of total knee arthroplasty Family History Family History Father Cerebrovascular accident Mother Emphysema of lung Sibling Acute myocardial infarction Cerebrovascular accident Social History Social History Social History: The patient lives with his who has metastatic breast cancer. He has 1 daughter. 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 Lifelong nonsmoker. Code status full code Smoking status: Never smoker Alcohol intake: current Drinks per week: 1 Alcohol use details: rare drinker while dining out, <1 per week Substance use: never Substance use type: does not use Do You Feel Safe in your Home?: Yes Lack of Transportation: No Lack of Food: Never True Current Housing: I Have Housing Concerned About Future Housing: No Difficulty Paying Gas/Electric Bills: No Difficulty Paying for Meds: No Currently Unemployed: No Education: Associate Degree Difficulty w/ Childcare or Family Care: No Living arrangements: with family Additional living arrangements comments: Spiritual care concerns: No Meds Home Medications and Allergies Home Medications Medication Instructions Recorded Confirmed Type lansoprazole 15 mg capsule,delayed 15 mg PO DAILY Indigestion 02/10/21 01/16/24 History release ascorbic acid (vitamin C) 1,000 mg 1 g PO DAILY 03/15/22 01/16/24 History capsule ezetimibe 10 mg tablet 10 mg PO DAILY 03/15/22 01/16/24 History gabapentin 100 mg capsule 100 mg PO TID 03/15/22 01/16/24 History geriatric multivitamin-min 1 tablet PO DAILY 03/15/22 01/16/24 History vitamin B complex (B 1 tablet PO DAILY 03/15/22 01/16/24 History Complex-Vitamin B12 tablet) aspirin 81 mg tablet,delayed 81 mg PO QAM 30 days #30 tabs 12/12/23 01/16/24 Rx release carvedilol 6.25 mg tablet (Coreg) 6.25 mg PO Q12HR 30 days #60 tabs 12/12/23 01/16/24 Rx rosuvastatin 40 mg tablet 40 mg PO DAILY #60 tabs 12/12/23 01/16/24 Rx ticagrelor 90 mg tablet (Brilinta) 90 mg PO Q12HR #60 tabs 12/12/23 01/16/24 Rx Allergies Allergy/AdvReac Type Severity Reaction Status Date / Time atorvastatin [From Lipitor] AdvReac Mild Dizziness Verified 01/16/24 05:03 Vital Signs Vital Signs - 24 hr 01/16/24 01:22 01/16/24 01:23 01/16/24 01:35 Temperature Pulse Rate 71 Respiratory Rate Blood Pressure Pulse Oximetry 100 98 Oxygen Delivery Room Air Room Air 01/16/24 01:36 01/16/24 02:17 01/16/24 04:05 Temperature 98 F 98 F 98 F Pulse Rate 71 61 58 L Respiratory Rate 17 17 12 Blood Pressure 171/85 H 128/84 128/68 Pulse Oximetry 100 100 97 Oxygen Delivery 01/16/24 05:48 01/16/24 05:56 01/16/24 07:23 Temperature 98.7 F Pulse Rate 59 L 67 Respiratory Rate 20 Blood Pressure 146/71 H Pulse Oximetry 98 97 Oxygen Delivery Room Air Exam Narrative: AF 98.7 146/71 67 20 97% ra Gen - well appearing male in no acute respiratory distress who is nontoxic-appearing lying semi recumbent in bed HEENT - normocephalic. Atraumatic. Pupils equal round and reactive. Extraocular motions intact. Sclera clear and anicteric. Nares patent. Oropharynx was poorly visualizedr. No oral lesions. Moist mucous membranes. Tongue was midline. Palate rogelio symmetrically. No facial asymmetry. Neck - neck was supple. No dominant adenopathy, thyromegaly or masses. 2+ carotid upstrokes without bruits. Chest - lungs are clear to auscultation bilaterally. No wheezes or crackles. No rash noted chest wall, flank or back. CV - heart was regular rate and rhythm. S1-S2. No murmurs gallops or rubs. Abd - abdomen was soft. Nontender. Nondistended. Positive bowel sounds. No organomegaly or masses. Ext - no clubbing, cyanosis but with trace edema. 2+ DP pulses bilaterally. Negative Homans. No cords. Neuro - patient is alert and oriented x4. Strength is 5/5 in both upper and lower extremities. Cranial nerves 2-12 are intact. Speech is clear. Psych - normal mood and affect. Patient is pleasant and cooperative. Skin - warm and dry. No rashes noted. H&P: Results Labs Labs: Short CBC 01/16/24 Range/Units 01:30 WBC 7.6 (4.5-10.0) K/mm3 Hgb 13.5 L (14.0-18.0) g/dL Hct 39.8 L (42.0-52.0) % Plt Count 197 (150-375) k/mm3 [facility] 01/16/24 01:30 Sodium 128 L Potassium 4.4 Chloride 97 L Carbon Dioxide 23 BUN 12 Creatinine 0.70 Glucose 113 H Calcium 9.4 Cardiac Enzymes 01/16/24 01/16/24 01/16/24 Range/Units 01:30 04:04 07:10 Troponin I 0.016 0.019 0.017 (0.000-0.034) ng/mL Liver Function 01/16/24 Range/Units 01:30 Total Bilirubin 0.7 (0.2-1.3) mg/dL AST 35 (17-59) U/L ALT 28 (6-50) U/L Alkaline Phosphatase 61 (38-126) U/L Albumin 4.5 (3.5-5.1) g/dL Assessment and Plan Assessment and plan (1) Chest pain in adult: Code(s): R07.9 - Chest pain, unspecified Status: Acute Assessment and Plan: Patient with atypical chest pain that is not associated with activity or food. Related to anxiety? Related to HTN? Troponin negative x3 and EKG showing no acute changes. Doubt angina. Consider related to Brilinta. Doubt pericarditis. Consider early shingles. Doubt PE but does have pedal edema. Check DDimer. Consider for workup for VTE. Cardiology consulted. (2) Hyponatremia: Code(s): E87.1 - Hypo-osmolality and hyponatremia Status: Acute Assessment and Plan: Patient with a chronically low sodium normally 132-135 over the past 2 years. Sodium worse at 128. Not on diuretics or SSRIs. Dehydration? Check TSH, cortisol. Check urine studies. (3) CAD (coronary artery disease): Code(s): I25.10 - Atherosclerotic heart disease of [place] coronary artery without angina pectoris Status: Acute Assessment and Plan: Patient with CAD and recent STEMI one month ago. Resume home meds: Brilinta, ASA, Crestor, Zetia, Coreg. Cardiology consulted (4) Elevated blood pressure reading: Code(s): R03.0 - Elevated blood-pressure reading, without diagnosis of hypertension Status: Acute Assessment and Plan: BP was elevated at 171/85 on admission but probably stress response. BP better now. Will monitor for now. (5) Hyperlipidemia: Code(s): E78.5 - Hyperlipidemia, unspecified Status: Acute Assessment and Plan: LFTs normal. Brilinta can cause increased levels and side effects of Crestor. No complaints of myalgia. Continue crestor. Check TCK. Plan DVT prophylaxis - lovenox Code status - full Hospitalist MIPS Advance Care Plan I have confirmed that the patient's Advanced Care Plan is present, code status is documented, or surrogate decision maker is listed in patient medical record.: Yes Medication Reconciliation I have utilized all available resources to obtain, update and review the patients current medications (includes all prescriptions, OTC, herbals, cannabis, and nutritional supplements).: Yes
--- NOTE | 2024-01-16 09:36 | PM.CNCAR ---
Assessment and Plan Assessment and plan (1) CAD (coronary artery disease): Code(s): I25.10 - Atherosclerotic heart disease of [place] coronary artery without angina pectoris Status: Acute (2) Chest pain in adult: Code(s): R07.9 - Chest pain, unspecified Status: Acute (3) Hyperlipidemia: Code(s): E78.5 - Hyperlipidemia, unspecified Status: Acute Plan 73-year-old man with CAD (STEMI 2023 sp PCI to RCA; minimal disease in left system) and hyperlipidemia presents with chest pain Chest pain -troponins negative for acute coronary syndrome -EKG and tele stable -heart rate unable to tolerate further increases in Coreg -can consider ranolazine outpatient; however benefits are minimal given chest pain does not appear to be cardiac in nature CAD status post PCI to RCA in setting of STEMI -minimal disease in left system -continue aspirin 81 mg daily, ticagrelor 90 mg p.o. b.i.d., Zetia 10 mg p.o. daily, rosuvastatin 40 mg every evening -continue Coreg 6.25 mg q.12 Hyperlipidemia -continue rosuvastatin 40 mg every evening and acetamide 10 mg p.o. daily Patient to follow-up with Dr. Hunter. Cardiology to sign off. Please call with additional questions History of Present Illness History of Present Illness Consult date/time: 01/16/24 09:36 Requesting physician: Vincent Strickland MD Reason For Visit: Unstable angina Narrative: 73-year-old man with CAD (STEMI 2023 sp PCI to RCA; minimal disease in left system) and hyperlipidemia presents with chest pain. He is functionally very active and typically ambulates 1.5 miles per day and does not have any chest pain or pressure like symptoms during ambulation. The pain that he describes typically occurs at rest and lasts an hour. He denies any shortness of breath, orthopnea, lower extremity swelling, or syncope. He has been taking his dual anti-platelet therapy regularly. [facility] Past Medical History Medical History CAD (coronary artery disease) Hx of STEMI 12/2023 s/p KIARA to mid-RCA Colon cancer screening GERD (gastroesophageal reflux disease) Hyperlipidemia Neuropathy Obesity Snoring Surgical History Surgical History H/O arthroscopy of left knee History of carpal tunnel surgery Bilateral History of tonsillectomy History of total knee arthroplasty Family History Family History Father Cerebrovascular accident Mother Emphysema of lung Sibling Acute myocardial infarction Cerebrovascular accident Social History Social History Social History: The patient lives with his who has metastatic breast cancer. He has 1 daughter. 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 Lifelong nonsmoker. Code status full code Smoking status: Never smoker Alcohol intake: current Drinks per week: 1 Alcohol use details: rare drinker while dining out, <1 per week Substance use: never Substance use type: does not use Do You Feel Safe in your Home?: Yes Lack of Transportation: No Lack of Food: Never True Current Housing: I Have Housing Concerned About Future Housing: No Difficulty Paying Gas/Electric Bills: No Difficulty Paying for Meds: No Currently Unemployed: No Education: Associate Degree Difficulty w/ Childcare or Family Care: No Living arrangements: with family Additional living arrangements comments: Spiritual care concerns: No Meds Home Medications and Allergies Home Medications Medication Instructions Recorded Confirmed Type lansoprazole 15 mg capsule,delayed 15 mg PO DAILY Indigestion 02/10/21 01/16/24 History release ascorbic acid (vitamin C) 1,000 mg 1 g PO DAILY 03/15/22 01/16/24 History capsule ezetimibe 10 mg tablet 10 mg PO DAILY 03/15/22 01/16/24 History gabapentin 100 mg capsule 100 mg PO TID 03/15/22 01/16/24 History geriatric multivitamin-min 1 tablet PO DAILY 03/15/22 01/16/24 History vitamin B complex (B 1 tablet PO DAILY 03/15/22 01/16/24 History Complex-Vitamin B12 tablet) aspirin 81 mg tablet,delayed 81 mg PO QAM 30 days #30 tabs 12/12/23 01/16/24 Rx release carvedilol 6.25 mg tablet (Coreg) 6.25 mg PO Q12HR 30 days #60 tabs 12/12/23 01/16/24 Rx rosuvastatin 40 mg tablet 40 mg PO DAILY #60 tabs 12/12/23 01/16/24 Rx ticagrelor 90 mg tablet (Brilinta) 90 mg PO Q12HR #60 tabs 12/12/23 01/16/24 Rx Allergies Allergy/AdvReac Type Severity Reaction Status Date / Time atorvastatin [From Lipitor] AdvReac Mild Dizziness Verified 01/16/24 05:03 Vital Signs Vital Signs - 24 hr 01/16/24 01:22 01/16/24 01:23 01/16/24 01:35 Temperature Pulse Rate 71 Respiratory Rate Blood Pressure Pulse Oximetry 100 98 Oxygen Delivery Room Air Room Air 01/16/24 01:36 01/16/24 02:17 01/16/24 04:05 Temperature 36.6 C 36.6 C 36.6 C Pulse Rate 71 61 58 L Respiratory Rate 17 17 12 Blood Pressure 171/85 H 128/84 128/68 Pulse Oximetry 100 100 97 Oxygen Delivery 01/16/24 05:48 01/16/24 05:56 01/16/24 07:23 Temperature 37.1 C Pulse Rate 59 L 67 Respiratory Rate 20 Blood Pressure 146/71 H Pulse Oximetry 98 97 Oxygen Delivery Room Air 01/16/24 08:00 Temperature 36.6 C Pulse Rate 56 L Respiratory Rate 16 Blood Pressure 129/99 H Pulse Oximetry 99 Oxygen Delivery Exam Const: General: comfortable HENMT: Mouth: Yes moist mucous membranes Eyes: EOM: EOMs intact bilaterally Neck: Neck: no JVD Resp: Auscultation: clear to auscultation bilaterally Cardio: Rate: regular rate Rhythm: regular rhythm GI: GI Palp: Yes Soft to palpation Neuro: Speech: normal speech Extrem: General: normal to inspection and no edema Psych: Affect: normal affect Results Labs and Meds 01/16/24 01:30 01/16/24 01:30 Lab results: Cardiac Enzymes 01/16/24 01/16/24 01/16/24 Range/Units 01:30 04:04 07:10 AST 35 (17-59) U/L Troponin I 0.016 0.019 0.017 (0.000-0.034) ng/mL Coagulation 01/16/24 Range/Units 01:30 PT 13.1 (11.1-14.7) Seconds APTT 34.4 (22.3-36.8) Seconds CBC 01/16/24 Range/Units 01:30 WBC 7.6 (4.5-10.0) K/mm3 RBC 4.83 (4.6-6.20) M/mm3 Hgb 13.5 L (14.0-18.0) g/dL Hct 39.8 L (42.0-52.0) % Plt Count 197 (150-375) k/mm3 Lymph # (Auto) 1.41 (0.9-3.2) K/mm3 Barton # (Auto) 0.6 (0.1-0.6) K/mm3 Eos # (Auto) 0.2 (0-0.3) K/mm3 Baso # (Auto) 0.0 (0.0-0.1) K/mm3 Comprehensive Metabolic Panel 01/16/24 Range/Units 01:30 Sodium 128 L (137-145) mmol/L Potassium 4.4 (3.4-5.0) mmol/L Chloride 97 L (98-107) mmol/L Carbon Dioxide 23 (22-30) mmol/L BUN 12 (9-20) mg/dL Creatinine 0.70 (0.7-1.3) mg/dL Glucose 113 H (65-110) mg/dL Calcium 9.4 (8.4-10.2) mg/dL AST 35 (17-59) U/L ALT 28 (6-50) U/L Alkaline Phosphatase 61 (38-126) U/L Total Protein 7.0 (6.3-8.2) g/dL Albumin 4.5 (3.5-5.1) g/dL Intake and Output 01/15/24 01/16/24 01/16/24 23:59 07:59 15:59 Other: # Unmeasured Voids 1 Patient Weight 01/16/24 23:59 Weight 115.8 kg
[2024-01-16] MEDS: ASCORBIC ACID 500 MG TABLET 1000 MG PO (09:58)
[2024-01-16] MEDS: ASPIRIN 81 MG ENTERIC TABLET PO (09:58)
[2024-01-16] MEDS: VITAMIN B COMPLEX CAPSULE 1 CAP PO (09:58)
[2024-01-16] MEDS: TICAGRELOR 90 MG TABLET PO ×2 (09:59→21:12)
[2024-01-16] MEDS: carvediloL 6.25 MG TABLET PO ×2 (09:59→21:13)
[2024-01-16] MEDS: ROSUVASTATIN 20 MG TABLET 40 MG PO (09:59)
[2024-01-16] MEDS: MULTIVITAMINS /C LUTEIN (CENTRUM SILVER) TABLET *BKC 1 TAB PO (09:59)
[2024-01-16] MEDS: EZETIMIBE 10 MG TABLET PO (09:59)
[2024-01-16] MEDS: PANTOPRAZOLE 40 MG TABLET PO (09:59)
[2024-01-16] MEDS: GABAPENTIN 100 MG CAPSULE PO ×3 (10:00→17:32)
[2024-01-16] MEDS: ENOXAPARIN 40 MG/0.4 ML SYRINGE SUB-Q (10:00)
[2024-01-16 10:12] LABS: Anion Gap 9 mmol/L (4-12); Blood Urea Nitrogen 12 mg/dL (9-20); Calcium 9.2 mg/dL (8.4-10.2); Carbon Dioxide 25 mmol/L (22-30); Chloride 95 mmol/L (98-107); Creatine Kinase 94 U/L (55-170); Estimated CRCL calculation 91 ml/min; Estimated Glomerular Filt Rate > 60; Glucose 107 mg/dL (65-110); Potassium 4.7 mmol/L (3.4-5.0); Sodium 129 mmol/L (137-145)
[2024-01-16 10:35] LABS: Cortisol Random 6.66 ug/dL
[2024-01-16 11:02] LABS: D Dimer < 0.27 ug/mL (<0.48)
[2024-01-16 12:54] LABS: Creatinine Urine 57.7 mg/dL
[2024-01-16 13:41] LABS: Sodium Urine Random 59 meq/L
[2024-01-16] MEDS: SODIUM CHLORIDE 0.9% IV 1,000 ML 100 ML IV CONT (21:09)
[2024-01-17 04:00] VITALS: BP 108/62; PULSE 62; RESP 20; TEMP 36.2; O2SAT 99
[2024-01-17 06:07] VITALS: PULSE 57
[2024-01-17 06:18] LABS: Anion Gap 6 mmol/L (4-12); Blood Urea Nitrogen 10 mg/dL (9-20); Calcium 9.1 mg/dL (8.4-10.2); Carbon Dioxide 26 mmol/L (22-30); Chloride 98 mmol/L (98-107); Estimated CRCL calculation 91 ml/min; Estimated Glomerular Filt Rate > 60; Glucose 105 mg/dL (65-110); Potassium 4.2 mmol/L (3.4-5.0); Sodium 130 mmol/L (137-145)
[2024-01-17 08:00] VITALS: BP 113/68; PULSE 57; PULSE 61; RESP 18; TEMP 36.2; O2SAT 99
[2024-01-17] MEDS: ASPIRIN 81 MG ENTERIC TABLET PO (08:23)
[2024-01-17] MEDS: ASCORBIC ACID 500 MG TABLET 1000 MG PO (08:23)
[2024-01-17] MEDS: ACETAMINOPHEN 325 MG TABLET 650 MG PO (08:23)
[2024-01-17] MEDS: ROSUVASTATIN 20 MG TABLET 40 MG PO (08:23)
[2024-01-17 08:24] VITALS: PULSE 59
[2024-01-17] MEDS: EZETIMIBE 10 MG TABLET PO (08:24)
[2024-01-17] MEDS: VITAMIN B COMPLEX CAPSULE 1 CAP PO (08:24)
[2024-01-17] MEDS: GABAPENTIN 100 MG CAPSULE PO (08:24)
[2024-01-17] MEDS: carvediloL 6.25 MG TABLET PO (08:24)
[2024-01-17] MEDS: MULTIVITAMINS /C LUTEIN (CENTRUM SILVER) TABLET *BKC 1 TAB PO (08:24)
[2024-01-17] MEDS: TICAGRELOR 90 MG TABLET PO (08:24)
[2024-01-17] MEDS: ENOXAPARIN 40 MG/0.4 ML SYRINGE SUB-Q (08:25)
[2024-01-17] MEDS: PANTOPRAZOLE 40 MG TABLET PO (08:25)
--- NOTE | 2024-01-17 10:47 | PM.DS ---
DS: Admitting Diagnosis Discharge Date 01/17/24 Admitting Diagnosis Chest pain DS: Discharge Diagnosis Discharge Diagnosis (1) Chest pain in adult: Code(s): R07.9 - Chest pain, unspecified Status: Acute (2) Hyponatremia: Code(s): E87.1 - Hypo-osmolality and hyponatremia Status: Acute (3) CAD (coronary artery disease): Code(s): I25.10 - Atherosclerotic heart disease of [place] coronary artery without angina pectoris Status: Acute (4) Elevated blood pressure reading: Code(s): R03.0 - Elevated blood-pressure reading, without diagnosis of hypertension Status: Acute (5) Hyperlipidemia: Code(s): E78.5 - Hyperlipidemia, unspecified Status: Acute DS: Summary Hospital Course Reason for hospitalization: 73yo male with CAD with recent STEMI here for chest pain. Please see H&P for details. Hospital Course: Patient presents chest pain. In the ED, he was hemodynamically stable. BP elevated at 171/85. No fevers, tachycardia or hypoxia. EKG showing normal sinus with inferior infarct but no change from EKG last month. Repeat EKG showing no significant change. CXR was clear. CBC, PT/PTT and CMP unremarkable except for sodium of 128. Troponin negative x3. BNP 356. Lipase normal. D-dimer was negative. He was given ASA, NTG and tylenol and admitted for further care. He does not drink excessive about of free water. Cardiology consulted but did not recommend any further evaluation at this time. Urine sodium was 59 but FENA was less than 1%. TSH and cortisol level were normal. He was given a small amount of IV fluids. His sodium improved to 130. No further chest pain. He is ready for discharge. Patient overall did well and was discharged home on 01/17/2024. Status at Discharge Cognitive/behavioral status at discharge: Stable Time Spent with Patient Time attestation: Total time spent providing and/or coordinating discharge services: 32 minutes Time spent: Greater than 30 minutes Exam Narrative: AF 97.1 113/68 59 18 99% ra Gen - NARD sitting up in a chair Chest - CTA bilaterally, nml RR CV - RRR S1/S2. Tele showing no significant dysrhythmias. Abd - Soft, NT/ND, Positive BS Ext - No pedal edema Psych - Nml mood and affect Skin - Warm and dry DS: Data Data Completed and Pending Labs on day of discharge: Labs from last 24 hours 01/17/24 01/16/24 01/16/24 05:25 12:35 10:21 D-Dimer < 0.27 Sodium 130 L Potassium 4.2 Chloride 98 Carbon Dioxide 26 Anion Gap 6 BUN 10 Creatinine 0.80 Estim Creat Clear Calc 91 Estimated GFR > 60 Glucose 105 Calcium 9.1 Ur Random Sodium 59 Urine Creatinine 57.7 Discharge Plan Discharge Attending physician on discharge: Vincent Strickland Consulting providers: Inocencio Martinez Discharging Clinician: Vincent Strickland Anticipated Discharge Date/Time: 01/17/24 10:53 Patient Disposition: Home, Self-Care Activity: as tolerated Diet: heart healthy Discharge Instructions: Contact your doctor or call 911 and come to the Emergency Room if you have recurrent chest pain, lightheadedness with standing or other worrisome symptoms. Avoid NSAIDs (ibuprofen, naproxen, Aleve). Tylenol is safe to take. Follow-up with your primary care provider in 1-2 weeks. Please call for appointment. Follow-up with Automatic Cent[employer]al Station Operator at next scheduled appointment. Thank you for using [facility] for your health care needs. Patient Instructions: Antibiotic Form, Ticagrelor (By mouth), Hyponatremia (DC), Pain Management (DC), DASH Eating Plan (DC), Low-Sodium Diet (DC) Stand Alone Forms: General Discharge Information Follow-up/Referrals: Sinan,Mark Massey MD [Primary Care Provider] - Call for Appointment Og Hunter MD [Physician] - Other Discharge Medications: Continued gabapentin 100 mg capsule 100 mg PO TID ezetimibe 10 mg tablet 10 mg PO DAILY Patient Comments: prescription has been filled; patient states he has not started taking it vitamin B complex [B Complex-Vitamin B12] Tablet 1 tablet PO DAILY geriatric multivitamin-min Tablet 1 tablet PO DAILY ascorbic acid (vitamin C) 1,000 mg Capsule 1 g PO DAILY lansoprazole 15 mg Capsule,Delayed Release(Dr/Ec) 15 mg PO DAILY Brilinta 90 mg Tablet 90 mg PO Q12HR Qty: 60 11RF carvedilol [Coreg] 6.25 mg Tablet 6.25 mg PO Q12HR 30 Days Qty: 60 11RF aspirin 81 mg Tablet,Delayed Release (Dr/Ec) 81 mg PO QAM 30 Days Qty: 30 11RF rosuvastatin 40 mg tablet 40 mg PO DAILY Qty: 60 11RF Date of admission: 01/16/24 09:03 Primary Care Provider: Sinan,Mark Massey Admitting Provider: Morgan Queen V. Attending physician on admission: Morgan Queen V. Condition: Stable Hospitalist MIPS Heart Failure (Exclusion) Patient has history of Heart Transplant or Left Ventricular Assistive Device?: No IF YES, STOP HERE Heart Failure (Qualifier) Patient has current or prior documentation of LVEF less than or equal to 40%, or mod/servere depressed LVSF?: No IF NO, STOP HERE
== END 2024-01-17 11:28 | disposition home or self-care (01) | DRG 313 ==
LOC: ANHED 02:03 → ANHIMU 05:12 → ANH2MED 12:46
PROVIDERS: Admitting Provider Internal Medicine; Emergency Provider Student in an Organized Health Care Education/Training Program; PCP Internal Medicine; Visit Provider Internal Medicine
DX: R07.9 Chest pain, unspecified (principal); E87.1 Hypo-osmolality and hyponatremia; I25.2 Old myocardial infarction; R03.0 Elevated blood-pressure reading, without diagnosis of hypertension; I25.10 Atherosclerotic heart disease of native coronary artery without angina pectoris; K21.9 Gastro-esophageal reflux disease without esophagitis; E78.5 Hyperlipidemia, unspecified; E66.9 Obesity, unspecified; G62.9 Polyneuropathy, unspecified; Z95.5 Presence of coronary angioplasty implant and graft; Z68.37 Body mass index [BMI] 37.0-37.9, adult
CPT/HCPCS: 36415; 71045; 80048; 80053; 82533; 82550; 82570; 83690; 83880; 84300; 84443; 84484; 85025; 85380; 85610; 85730; 93005; 99285; A9270; G0378; J1650; J7030

== ENCOUNTER 2024-05-31 12:30 | Outpatient (RCR) | payer MEDICARE, OTHER, SELFPAY | END 2024-05-31 12:52 | disposition home or self-care (01) | LOC: ANHCPREHAB 12:30 | PROVIDERS: PCP Internal Medicine; Visit Provider Internal Medicine Cardiovascular Disease | DX: I25.2 Old myocardial infarction (principal) | CPT/HCPCS: 93798 ==

== ENCOUNTER 2025-02-05 11:54 | Emergency (ER) | payer MEDICARE, OTHER, SELFPAY ==
--- NOTE | 2025-02-05 11:57 | ED_ITS ---
HPI - URI/Sore Throat General Chief Complaint: Upper Respiratory Infection Stated Complaint: Sinus Time Seen by Provider: 02/05/25 12:10 Source: patient, RN notes reviewed and old records reviewed Mode of arrival: ambulatory Limitations: no limitations History of Present Illness HPI Narrative: 74-year-old male presents to the [facility] with sinus pressure, sinus drainage since January 28 approximately 10 days. Patient reports that he has taken Mucinex. Denies chest pain, shortness of breath, fevers. Treatments prior to arrival: cold medicine Related Data Home Medications ?Medication ?Instructions ?Recorded ?Confirmed ?Last Taken ?Type lansoprazole 15 mg capsule,delayed 15 mg PO DAILY Lilliana gestion 02/10/21 01/16/24 01/15/24 09:00 History release ascorbic acid (vitamin C) 1,000 mg 1 g PO DAILY 01/16/24 01/15/24 History capsule ezetimibe 10 mg tablet 10 mg PO DAILY 03/15/2201/0512/10/23 10:00 History gabapentin 100 mg capsule 100 mg PO TID 03/15/2201/1501/15/24 21:00 History geriatric multivitamin-min 1 tablet PO DAILY 03/15/22 01/16/24 01/15/24 09:00 History vitamin B complex (B 1 tablet PO DAILY 03/15/2203/17/23 01/15/24 09:00 History Complex-Vitamin B12 tablet) Allergies Allergy/AdvReac Type Severity Reaction Status Date / Time atorvastatin (From Lipitor) AdvReac Mild Dizziness Verified 02/05/25 12:14 Review of Systems Review of Systems: All systems reviewed & are unremarkable except as noted in HPI and below Constitutional: Constitutional: Reports no additional constitutional complaints and Denies fever(s) ENT: Reports as per HPI, Reports nasal discharge and Reports sinus pressure Cardiovascular: Cardiovascular: Reports no additional cardiovascular complaints, Denies chest pain and Denies dyspnea Respiratory: Respiratory: Reports no additional respiratory complaints, Denies chest congestion, Denies cough and Denies dyspnea Musculoskeletal: Musculoskeletal: Reports no additional musculoskeletal complaints Integumentary/Breasts: Skin/Breast: Reports system reviewed and no additional complaints, except as docu PMFSH Past Medical History Medical History CAD (coronary artery disease) Hx of STEMI 12/2023 s/p KIARA to mid-RCA Neuropathy Hyperlipidemia Snoring Obesity GERD (gastroesophageal reflux disease) Colon cancer screening Surgical History Surgical History History of total knee arthroplasty H/O arthroscopy of left knee History of tonsillectomy History of carpal tunnel surgery Bilateral Family History Family History Father Cerebrovascular accident Prostate carcinoma Mother No problems noted. Sibling Acute myocardial infarction >65yo Cerebrovascular accident Social History Social History Social History: The patient lives with his who has metastatic breast cancer. He has 1 daughter. 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 Lifelong nonsmoker. Code status full code Smoking status: Never smoker Alcohol intake: current Drinks per week: 1 Alcohol use details: rare drinker while dining out, <1 per week Substance use: never Substance use type: does not use Lack of Transportation: No Lack of Food: Never True Current Housing: I Have Housing Concerned About Future Housing: No Difficulty Paying Gas/Electric Bills: No Difficulty Paying for Meds: No Currently Unemployed: No Education: Associate Degree Difficulty w/ Childcare or Family Care: No Living arrangements: with family Additional living arrangements comments: Spiritual care concerns: No Comments At the time of my signature, I reviewed and agree with the nursing past medical, surgical, social, and family history. There is no relevant family history pertinent to the patient complaint. Exam Const: General: cooperative, healthy appearing, comfortable, no acute distress, well developed, alert and well nourished Nutritional Appearance: well nourished Orientation/consciousness: patient oriented x3 Limitations: no limitations HENMT: Head: normal to inspection Ears: hearing grossly normal bilaterally, external ears normal, TM's normal bilaterally, EAC's normal, mastoids normal and no periauricular adenopathy Face/Nose/Sinus: Normal external nose present, Nasal discharge present clear bilateral and face symmetric Face and sinus: face symmetric and sinus tenderness frontal and maxillary Mouth: Yes Normal oral and palatal mucosa present, Yes lip normal, Yes tongue normal, Yes moist mucous membranes, Yes moist mucous membranes abnormal and Yes dry mucous membranes Throat: posterior oropharynx normal, uvula midline, postnasal drainage and no uvular edema Eyes: General: appearance normal, both eyes and all related structures Alignment and Position: alignment normal Neck: Neck: normal visual inspection, full ROM, no lymphadenopathy and no meningeal signs Chest: Chest palpation & inspection: normal inspection of the chest Resp: Effort & Inspection: normal respiratory effort and able to speak in complete sentences Auscultation: clear to auscultation bilaterally, no crackles, no rales, no rhonchi and no wheezes Cardio: Rate: regular rate Skin: General skin exam: normal color and no rashes or lesions noted Neuro: General: patient oriented x3, gait normal, moves all extremities and no meningeal signs Cognition (Neuro): normal cognition Speech: normal speech Gait exam (Neuro): Normal gait present Extrem: General: normal to inspection, full ROM, capillary refill normal and normal gait Psych: Appearance: grossly normal and well kempt Mental Status: mental status grossly normal Speech and movement: Normal speech and movement present and Clear speech present Affect: normal affect Attitude: cooperative Course Course Level of Care: Express Care Visit Vital Signs Vital signs: Vital Signs Temperature 97.1 F L 02/05/25 12:07 Pulse Rate 68 02/05/25 12:07 Respiratory Rate 16 02/05/25 12:07 Blood Pressure 159/30 H 02/05/25 12:07 Pulse Oximetry 97 02/05/25 12:07 Oxygen Delivery Room Air 02/05/25 12:07 Temperature 97.1 F L 02/05/25 12:07 Pulse Rate 68 02/05/25 12:07 Respiratory Rate 16 02/05/25 12:07 Blood Pressure 159/30 H 02/05/25 12:07 Pulse Oximetry 97 02/05/25 12:07 Oxygen Delivery Room Air 02/05/25 12:07 Reviewed MDM MDM Narrative Medical decision making narrative: patient sitting in exam room. Patient presents with approximately 10 days of sinus pain, pressure increasing over the last couple of days. no testing indicated due to length of symptoms. Patient with his significant medical history, currently being treated for hypertension with medications. Patient appropriate for outpatient treatment with [id number] products as well as antibiotics due to length of symptoms Discharge instructions reviewed with patient, as well as provided in writing per nursing staff. The instructions also include specific and strict return/GO TO THE ER as well as f/u information. All questions have been answered, and the patient deny any further questions with discharge and discharge plan. Some parts of this dictation were generated by voice recognition software and may contain typographical and/or grammatical inaccuracies. Differential Diagnosis Differential Diagnosis: Differential diagnostic considerations for upper respiratory infection include upper respiratory infection, otitis media, sinusitis, viral infection, bronchitis, influenza, pharyngitis, strep, uvulitis.? Medical Records I have reviewed the following patient records and this information was taken into consideration when formulating the assessment and plan.: previous ER visits Critical Care Time Critical Care Time Critical Care Time: No Discharge Plan Discharge Clinical Impression: Sinusitis Qualifiers: Sinusitis location: pansinusitis Chronicity: acute Recurrence: not specified as recurrent Qualified Code(s): J01.40 - Acute pansinusitis, unspecified Patient Disposition: Home Condition: Stable Instructions: Antibiotic Form, Sinusitis (ED) Additional Instructions: It is very important to treat your symptoms. Drink plenty of water, Gatorade, Pedialyte, ice pops or Jell-O. -Alternate Tylenol and Motrin per package directions for fever or pain. You can alternate every 4 hours -Antihistamine medication such as Zyrtec/Claritin during the day can help improve symptoms. -doing daily nasal irrigations with saline can help relieve pressure your sinuses. Things like a Neti pot -Use Flonase daily to help reduce the inflammation and dry up your sinuses. -You can also use Coricidin HBP orMucinex. Be sure to drink plenty of water with this medication at least 8 ounces with every dose and it is important to drink 8 to 10 glasses of water per day. Water is a natural decongestant make sure any medication you take is safe with blood pressure medication. A pharmacist is always a good resource to check with before taking -Eat and drink things that are easy to swallow, like tea or soup, or popsicles. -Oral rinses such as: Salt water gargles and/or may use topical anesthetic (eg. Chloraseptic spray) or lozenges to relieve dryness or throat pain). -Frequent hand washing or hand occupational health professional is one of the best ways to prevent spread of infection. -Using a vaporizer or humidifier at night will also help thin secretions and help with coughing up phlegm. -Follow up with primary care provider in 7-10 days if condition is not improving - For new or worsening symptoms go directly to the nearest ER Patient Language: [place] Prescriptions: New amoxicillin-pot clavulanate 875-125 mg tablet 1 tablet PO Q12H Qty: 14 0RF No Action gabapentin 100 mg capsule 100 mg PO TID ezetimibe 10 mg tablet 10 mg PO DAILY Patient Comments: prescription has been filled; patient states he has not started taking it vitamin B complex [B Complex-Vitamin B12] Tablet 1 tablet PO DAILY geriatric multivitamin-min Tablet 1 tablet PO DAILY ascorbic acid (vitamin C) 1,000 mg Capsule 1 g PO DAILY lansoprazole 15 mg Capsule,Delayed Release(Dr/Ec) 15 mg PO DAILY carvedilol [Coreg] 6.25 mg Tablet 6.25 mg PO Q12HR 30 Days Qty: 60 11RF aspirin 81 mg Tablet,Delayed Release (Dr/Ec) 81 mg PO QAM 30 Days Qty: 30 11RF rosuvastatin 40 mg tablet 40 mg PO DAILY Qty: 60 11RF Follow-up/Referrals: Sinan,Mark Massey MD [Primary Care Provider, Unknown] - 2 Weeks Clinical Impression: Sinusitis Time of Disposition: 12:21
[2025-02-05 12:07] VITALS: BP 159/30; PULSE 68; RESP 16; TEMP 36.2; O2SAT 97
== END 2025-02-05 12:25 | disposition home or self-care (01) ==
PROVIDERS: Emergency Provider Nurse Practitioner; PCP Internal Medicine
DX: J01.40 Acute pansinusitis, unspecified (principal); I25.10 Atherosclerotic heart disease of native coronary artery without angina pectoris; E78.5 Hyperlipidemia, unspecified; G62.9 Polyneuropathy, unspecified; K21.9 Gastro-esophageal reflux disease without esophagitis; E66.9 Obesity, unspecified; Z68.36 Body mass index [BMI] 36.0-36.9, adult; I25.2 Old myocardial infarction; Z79.82 Long term (current) use of aspirin
CPT/HCPCS: 99213; G0463